=== PATIENT | female | born 1950 | race Caucasian/White ===

== ENCOUNTER 2016-10-26 12:45 | Outpatient (CLI) | payer MEDICARE, MEDICAID ==
[~2016-10-26 12:45] MED LIST: CIPR500T5 PO; DULO30CA2 PO; FLUC100T8 PO; LEVO150T8 PO; METF500T4 PO; SULF1TAB48 PO
== END 2016-10-26 23:59 | disposition home health service (06) ==
LOC: WOU 12:45
PROVIDERS: ATTEND Podiatrist Foot & Ankle Surgery
DX: E11.621 Type 2 diabetes mellitus with foot ulcer (principal); L97.513 Non-pressure chronic ulcer of other part of right foot with necrosis of muscle; L97.523 Non-pressure chronic ulcer of other part of left foot with necrosis of muscle; E11.42 Type 2 diabetes mellitus with diabetic polyneuropathy; M20.11 Hallux valgus (acquired), right foot; M20.12 Hallux valgus (acquired), left foot; Z79.84 Long term (current) use of oral hypoglycemic drugs; Z89.421 Acquired absence of other right toe(s); E03.9 Hypothyroidism, unspecified; L03.115 Cellulitis of right lower limb; L03.116 Cellulitis of left lower limb
CPT/HCPCS: 11043; 87070; 87075; A6402 ×2; 87186-TC

== ENCOUNTER 2016-10-30 14:03 | Outpatient (CLI) | payer MEDICARE, MEDICAID | END 2016-10-30 23:59 | disposition home health service (06) | LOC: WOU 14:03 | PROVIDERS: ATTEND Podiatrist Foot & Ankle Surgery | DX: E11.621 Type 2 diabetes mellitus with foot ulcer (principal); L97.523 Non-pressure chronic ulcer of other part of left foot with necrosis of muscle; L97.413 Non-pressure chronic ulcer of right heel and midfoot with necrosis of muscle; E11.42 Type 2 diabetes mellitus with diabetic polyneuropathy; L03.116 Cellulitis of left lower limb; L03.115 Cellulitis of right lower limb; B95.2 Enterococcus as the cause of diseases classified elsewhere; M20.11 Hallux valgus (acquired), right foot; M20.12 Hallux valgus (acquired), left foot | CPT/HCPCS: 11042; 11043; A6402 ==

== ENCOUNTER 2016-11-02 13:30 | Outpatient (CLI) | payer MEDICARE, MEDICAID | END 2016-11-02 23:59 | disposition home health service (06) | LOC: WOU 13:30 | PROVIDERS: ATTEND Podiatrist Foot & Ankle Surgery | DX: E11.621 Type 2 diabetes mellitus with foot ulcer (principal); I96 Gangrene, not elsewhere classified; L97.529 Non-pressure chronic ulcer of other part of left foot with unspecified severity; L97.523 Non-pressure chronic ulcer of other part of left foot with necrosis of muscle; L97.411 Non-pressure chronic ulcer of right heel and midfoot limited to breakdown of skin; M20.11 Hallux valgus (acquired), right foot; M20.41 Other hammer toe(s) (acquired), right foot; E11.42 Type 2 diabetes mellitus with diabetic polyneuropathy; E03.9 Hypothyroidism, unspecified; Z79.84 Long term (current) use of oral hypoglycemic drugs; Z79.899 Other long term (current) drug therapy | CPT/HCPCS: 11042; 11043; A6402 ==

== ENCOUNTER 2016-11-09 13:37 | Outpatient (CLI) | payer MEDICARE, MEDICAID | END 2016-11-09 23:59 | disposition home or self-care (01) | LOC: WOU 13:37 | PROVIDERS: ATTEND Podiatrist Foot & Ankle Surgery | DX: E11.621 Type 2 diabetes mellitus with foot ulcer (principal); L97.413 Non-pressure chronic ulcer of right heel and midfoot with necrosis of muscle; E11.42 Type 2 diabetes mellitus with diabetic polyneuropathy; E03.9 Hypothyroidism, unspecified; B35.1 Tinea unguium; M20.11 Hallux valgus (acquired), right foot; M20.12 Hallux valgus (acquired), left foot; L97.523 Non-pressure chronic ulcer of other part of left foot with necrosis of muscle; L97.521 Non-pressure chronic ulcer of other part of left foot limited to breakdown of skin; Z89.421 Acquired absence of other right toe(s) | CPT/HCPCS: 11043; A6402 ==

== ENCOUNTER 2016-11-13 11:03 | Outpatient (CLI) | payer MEDICARE, MEDICAID | END 2016-11-13 23:59 | disposition home or self-care (01) | LOC: WOU 11:03 | PROVIDERS: ATTEND Podiatrist Foot & Ankle Surgery | DX: E11.621 Type 2 diabetes mellitus with foot ulcer (principal); L97.523 Non-pressure chronic ulcer of other part of left foot with necrosis of muscle; E11.42 Type 2 diabetes mellitus with diabetic polyneuropathy; L97.513 Non-pressure chronic ulcer of other part of right foot with necrosis of muscle; M20.11 Hallux valgus (acquired), right foot; M20.12 Hallux valgus (acquired), left foot; B35.1 Tinea unguium; E03.9 Hypothyroidism, unspecified; Z79.84 Long term (current) use of oral hypoglycemic drugs | CPT/HCPCS: 11043; A6402 ==

== ENCOUNTER 2016-11-16 11:54 | Outpatient (CLI) | payer MEDICARE, MEDICAID | END 2016-11-16 23:59 | disposition home or self-care (01) | LOC: WOU 11:54 | PROVIDERS: ATTEND Podiatrist Foot & Ankle Surgery | DX: E11.621 Type 2 diabetes mellitus with foot ulcer (principal); L97.523 Non-pressure chronic ulcer of other part of left foot with necrosis of muscle; L97.513 Non-pressure chronic ulcer of other part of right foot with necrosis of muscle; Z89.421 Acquired absence of other right toe(s); E03.9 Hypothyroidism, unspecified; E11.42 Type 2 diabetes mellitus with diabetic polyneuropathy; M20.12 Hallux valgus (acquired), left foot; M20.11 Hallux valgus (acquired), right foot | CPT/HCPCS: 11043; A6402 ==

== ENCOUNTER 2016-11-21 13:15 | Outpatient (CLI) | payer MEDICARE | END 2016-11-21 23:59 | disposition home or self-care (01) | LOC: WOU 13:15 | PROVIDERS: ATTEND Podiatrist Foot & Ankle Surgery | DX: E11.621 Type 2 diabetes mellitus with foot ulcer (principal); L97.523 Non-pressure chronic ulcer of other part of left foot with necrosis of muscle; L97.413 Non-pressure chronic ulcer of right heel and midfoot with necrosis of muscle; E11.42 Type 2 diabetes mellitus with diabetic polyneuropathy; M20.11 Hallux valgus (acquired), right foot; E03.9 Hypothyroidism, unspecified; M20.12 Hallux valgus (acquired), left foot | CPT/HCPCS: 11043; A6402 ==

== ENCOUNTER 2016-11-23 13:14 | Outpatient (CLI) | payer MEDICARE | END 2016-11-23 23:59 | disposition home or self-care (01) | LOC: WOU 13:14 | PROVIDERS: ATTEND Podiatrist Foot & Ankle Surgery | DX: E11.621 Type 2 diabetes mellitus with foot ulcer (principal); L97.513 Non-pressure chronic ulcer of other part of right foot with necrosis of muscle; L97.523 Non-pressure chronic ulcer of other part of left foot with necrosis of muscle; E11.42 Type 2 diabetes mellitus with diabetic polyneuropathy; M20.11 Hallux valgus (acquired), right foot; E11.65 Type 2 diabetes mellitus with hyperglycemia; R11.0 Nausea; E03.9 Hypothyroidism, unspecified; M20.42 Other hammer toe(s) (acquired), left foot; M20.41 Other hammer toe(s) (acquired), right foot; Z79.84 Long term (current) use of oral hypoglycemic drugs | CPT/HCPCS: 11043; 82962-TC; A6402 ==

== ENCOUNTER 2016-11-23 14:28 | Emergency (ER) | payer MEDICARE ==
[~2016-11-23] VITALS: Ht 160 cm; Wt 86.2 kg
[2016-11-23] MEDS ORDERED: IV NS 0.9% 1,000 ML ONE (14:58)
[2016-11-23] MEDS ORDERED: IV NS 0.9% 1,000 ML BAG IV ONE (15:00)
[2016-11-23 15:18] LABS: BASOPHILS # (AUTO) 0.1 /CMM (0.0-0.2); BASOPHILS % (AUTO) 1.3 % (0.0-2.0); DIFF TOTAL % 100 %; EOSINOPHILS # (AUTO) 0.2 /CMM (0.0-0.7); EOSINOPHILS % (AUTO) 3.1 % (0.0-6.0); HEMATOCRIT 45 % (33-45); HEMOGLOBIN 14.8 g/dL (11.5-14.8); LYMPHOCYTES # (AUTO) 2.2 /CMM (0.8-4.8); LYMPHOCYTES % (AUTO) 36.2 % (20.0-44.0); MEAN CORPUSCULAR HEMOGLOBIN 30 PG (26.0-33.0); MEAN CORPUSCULAR HGB CONC 33 g/dl (31.0-36.0); MEAN CORPUSCULAR VOLUME 92 fL (82-100); MONOCYTES # (AUTO) 0.3 /CMM (0.1-1.30); MONOCYTES % (AUTO) 5.8 % (2.0-12.0); NEUTROPHILS # (AUTO) 3.2 /CMM (1.8-8.9); NEUTROPHILS % (AUTO) 53.6 % (43.0-81.0); PLATELET COUNT (AUTO) 324 /CMM (150-450); RED BLOOD CELL COUNT(AUTO) 4.92 MIL/uL (4.0-5.2)
[2016-11-23 15:42] LABS: CALCIUM, SERUM 8.9 mg/dL (8.5-10.1); CREATININE 1.2 mg/dL (0.6-1.3); POTASSIUM 4.2 mmol/L (3.5-5.1)
[2016-11-23 16:24] VITALS: BP 145/88
== END 2016-11-23 16:24 | disposition home or self-care (01) ==
LOC: ER 14:33
DX: R73.9 Hyperglycemia, unspecified (principal); R42 Dizziness and giddiness; E11.9 Type 2 diabetes mellitus without complications; E03.9 Hypothyroidism, unspecified; Z91.19 Patient's noncompliance with other medical treatment and regimen
CPT/HCPCS: 36415; 80048-TC; 82962-TC; 85025-TC; A4606; J7030; Z7610

== ENCOUNTER 2016-11-27 14:19 | Outpatient (CLI) | payer MEDICARE | END 2016-11-27 23:59 | disposition home or self-care (01) | LOC: WOU 14:19 | PROVIDERS: ATTEND Podiatrist Foot & Ankle Surgery | DX: E11.621 Type 2 diabetes mellitus with foot ulcer (principal); L97.513 Non-pressure chronic ulcer of other part of right foot with necrosis of muscle; L97.523 Non-pressure chronic ulcer of other part of left foot with necrosis of muscle; E11.42 Type 2 diabetes mellitus with diabetic polyneuropathy; M20.11 Hallux valgus (acquired), right foot; E03.9 Hypothyroidism, unspecified; R26.9 Unspecified abnormalities of gait and mobility | CPT/HCPCS: 11043; A6402 ==

== ENCOUNTER 2016-11-30 13:45 | Outpatient (CLI) | payer MEDICARE | END 2016-11-30 23:59 | disposition home or self-care (01) | LOC: WOU 13:45 | PROVIDERS: ATTEND Podiatrist Foot & Ankle Surgery | DX: E11.621 Type 2 diabetes mellitus with foot ulcer (principal); L97.513 Non-pressure chronic ulcer of other part of right foot with necrosis of muscle; L97.523 Non-pressure chronic ulcer of other part of left foot with necrosis of muscle; E11.42 Type 2 diabetes mellitus with diabetic polyneuropathy; B35.1 Tinea unguium; M20.11 Hallux valgus (acquired), right foot; M20.12 Hallux valgus (acquired), left foot; E03.9 Hypothyroidism, unspecified; Z79.84 Long term (current) use of oral hypoglycemic drugs | CPT/HCPCS: 11043; A6402 ==

== ENCOUNTER 2016-12-04 14:16 | Outpatient (CLI) | payer MEDICARE | END 2016-12-04 23:59 | disposition home or self-care (01) | LOC: WOU 14:16 | PROVIDERS: ATTEND Podiatrist Foot & Ankle Surgery | DX: E11.621 Type 2 diabetes mellitus with foot ulcer (principal); L97.523 Non-pressure chronic ulcer of other part of left foot with necrosis of muscle; E11.42 Type 2 diabetes mellitus with diabetic polyneuropathy; L97.513 Non-pressure chronic ulcer of other part of right foot with necrosis of muscle; M20.11 Hallux valgus (acquired), right foot; M20.21 Hallux rigidus, right foot; E03.9 Hypothyroidism, unspecified; M20.42 Other hammer toe(s) (acquired), left foot; M20.41 Other hammer toe(s) (acquired), right foot; Z89.421 Acquired absence of other right toe(s); R60.0 Localized edema; L03.115 Cellulitis of right lower limb; L03.116 Cellulitis of left lower limb; Z79.84 Long term (current) use of oral hypoglycemic drugs; Z79.899 Other long term (current) drug therapy | CPT/HCPCS: 11043; A6402 ==

== ENCOUNTER 2016-12-07 13:46 | Outpatient (CLI) | payer MEDICARE ==
[2016-12-07 14:31] LABS: ALBUMIN 3.5 g/dL (3.4-5.0); CALCIUM, SERUM 8.7 mg/dL (8.5-10.1); CREATININE 1.2 mg/dL (0.6-1.3); POTASSIUM 5.3 mmol/L (3.5-5.1)
== END 2016-12-07 23:59 | disposition home or self-care (01) ==
LOC: WOU 13:46
PROVIDERS: ATTEND Podiatrist Foot & Ankle Surgery
DX: E11.621 Type 2 diabetes mellitus with foot ulcer (principal); L97.513 Non-pressure chronic ulcer of other part of right foot with necrosis of muscle; L97.523 Non-pressure chronic ulcer of other part of left foot with necrosis of muscle; E11.42 Type 2 diabetes mellitus with diabetic polyneuropathy; Z89.422 Acquired absence of other left toe(s); E03.9 Hypothyroidism, unspecified; M20.11 Hallux valgus (acquired), right foot; E11.65 Type 2 diabetes mellitus with hyperglycemia; Z79.84 Long term (current) use of oral hypoglycemic drugs; Z79.899 Other long term (current) drug therapy
CPT/HCPCS: 11043; 36415; 80048; 82040; 83036; 84134; A6402

== ENCOUNTER 2016-12-11 14:15 | Outpatient (CLI) | payer MEDICARE | END 2016-12-11 23:59 | disposition home or self-care (01) | LOC: WOU 14:15 | PROVIDERS: ATTEND Podiatrist Foot & Ankle Surgery | DX: E11.621 Type 2 diabetes mellitus with foot ulcer (principal); L97.513 Non-pressure chronic ulcer of other part of right foot with necrosis of muscle; L97.523 Non-pressure chronic ulcer of other part of left foot with necrosis of muscle; E11.42 Type 2 diabetes mellitus with diabetic polyneuropathy; M20.12 Hallux valgus (acquired), left foot; M20.11 Hallux valgus (acquired), right foot; B35.1 Tinea unguium; E11.65 Type 2 diabetes mellitus with hyperglycemia; Z79.84 Long term (current) use of oral hypoglycemic drugs; E03.9 Hypothyroidism, unspecified; Z79.899 Other long term (current) drug therapy | CPT/HCPCS: 11042; 11043; A6402 ==

== ENCOUNTER 2016-12-14 13:48 | Outpatient (CLI) | payer MEDICARE | END 2016-12-14 23:59 | disposition home or self-care (01) | LOC: WOU 13:48 | PROVIDERS: ATTEND Podiatrist Foot & Ankle Surgery | DX: E11.621 Type 2 diabetes mellitus with foot ulcer (principal); L97.513 Non-pressure chronic ulcer of other part of right foot with necrosis of muscle; L97.523 Non-pressure chronic ulcer of other part of left foot with necrosis of muscle; M20.11 Hallux valgus (acquired), right foot; M20.12 Hallux valgus (acquired), left foot; E11.42 Type 2 diabetes mellitus with diabetic polyneuropathy; E11.65 Type 2 diabetes mellitus with hyperglycemia; E03.9 Hypothyroidism, unspecified; B35.1 Tinea unguium; Z79.84 Long term (current) use of oral hypoglycemic drugs; Z79.899 Other long term (current) drug therapy | CPT/HCPCS: 11043; 82962; A6402 ==

== ENCOUNTER 2016-12-18 14:24 | Outpatient (CLI) | payer MEDICARE | END 2016-12-18 23:59 | disposition home or self-care (01) | LOC: WOU 14:24 | PROVIDERS: ATTEND Podiatrist Foot & Ankle Surgery | DX: E11.65 Type 2 diabetes mellitus with hyperglycemia (principal); E11.621 Type 2 diabetes mellitus with foot ulcer; L97.523 Non-pressure chronic ulcer of other part of left foot with necrosis of muscle; L97.413 Non-pressure chronic ulcer of right heel and midfoot with necrosis of muscle; E11.42 Type 2 diabetes mellitus with diabetic polyneuropathy; M20.61 Acquired deformities of toe(s), unspecified, right foot; M20.42 Other hammer toe(s) (acquired), left foot; M20.41 Other hammer toe(s) (acquired), right foot; Z79.84 Long term (current) use of oral hypoglycemic drugs | CPT/HCPCS: 11043; A6402 ==

== ENCOUNTER 2016-12-21 13:54 | Outpatient (CLI) | payer MEDICARE | END 2016-12-21 23:59 | disposition home or self-care (01) | LOC: WOU 13:54 | PROVIDERS: ATTEND Podiatrist Foot & Ankle Surgery | DX: E11.621 Type 2 diabetes mellitus with foot ulcer (principal); L97.513 Non-pressure chronic ulcer of other part of right foot with necrosis of muscle; L97.523 Non-pressure chronic ulcer of other part of left foot with necrosis of muscle; E11.42 Type 2 diabetes mellitus with diabetic polyneuropathy; M20.11 Hallux valgus (acquired), right foot; M20.12 Hallux valgus (acquired), left foot; E03.9 Hypothyroidism, unspecified; E11.65 Type 2 diabetes mellitus with hyperglycemia; Z79.84 Long term (current) use of oral hypoglycemic drugs | CPT/HCPCS: 11043; A6402 ==

== ENCOUNTER 2016-12-25 14:28 | Outpatient (CLI) | payer MEDICARE | END 2016-12-25 23:59 | disposition home or self-care (01) | LOC: WOU 14:28 | PROVIDERS: ATTEND Podiatrist Foot & Ankle Surgery | DX: E11.621 Type 2 diabetes mellitus with foot ulcer (principal); L97.513 Non-pressure chronic ulcer of other part of right foot with necrosis of muscle; L97.523 Non-pressure chronic ulcer of other part of left foot with necrosis of muscle; E11.42 Type 2 diabetes mellitus with diabetic polyneuropathy; E11.65 Type 2 diabetes mellitus with hyperglycemia; M20.11 Hallux valgus (acquired), right foot; L03.115 Cellulitis of right lower limb | CPT/HCPCS: 11042; 11043; 82962; A6402 ==

== ENCOUNTER 2016-12-28 13:39 | Outpatient (CLI) | payer MEDICARE | END 2016-12-28 23:59 | disposition home or self-care (01) | LOC: WOU 13:39 | PROVIDERS: ATTEND Podiatrist Foot & Ankle Surgery | DX: E11.621 Type 2 diabetes mellitus with foot ulcer (principal); L97.423 Non-pressure chronic ulcer of left heel and midfoot with necrosis of muscle; L97.513 Non-pressure chronic ulcer of other part of right foot with necrosis of muscle; E11.42 Type 2 diabetes mellitus with diabetic polyneuropathy; E03.9 Hypothyroidism, unspecified; Z89.421 Acquired absence of other right toe(s); E11.65 Type 2 diabetes mellitus with hyperglycemia; M20.40 Other hammer toe(s) (acquired), unspecified foot; M20.12 Hallux valgus (acquired), left foot; Z79.84 Long term (current) use of oral hypoglycemic drugs | CPT/HCPCS: 11043; A6402 ==

== ENCOUNTER 2017-01-01 14:07 | Outpatient (CLI) | payer MEDICARE | END 2017-01-01 23:59 | disposition home or self-care (01) | LOC: WOU 14:07 | PROVIDERS: ATTEND Podiatrist Foot & Ankle Surgery | DX: E11.621 Type 2 diabetes mellitus with foot ulcer (principal); L97.523 Non-pressure chronic ulcer of other part of left foot with necrosis of muscle; L97.413 Non-pressure chronic ulcer of right heel and midfoot with necrosis of muscle; E11.42 Type 2 diabetes mellitus with diabetic polyneuropathy; M20.42 Other hammer toe(s) (acquired), left foot; M20.41 Other hammer toe(s) (acquired), right foot; M20.12 Hallux valgus (acquired), left foot; M20.11 Hallux valgus (acquired), right foot; Z89.422 Acquired absence of other left toe(s); E03.9 Hypothyroidism, unspecified; E11.65 Type 2 diabetes mellitus with hyperglycemia; Z79.84 Long term (current) use of oral hypoglycemic drugs; Z79.899 Other long term (current) drug therapy | CPT/HCPCS: 11043; 82962; A6402 ==

== ENCOUNTER 2017-01-04 13:20 | Outpatient (CLI) | payer MEDICARE | END 2017-01-04 23:59 | disposition home or self-care (01) | LOC: WOU 13:20 | PROVIDERS: ATTEND Podiatrist Foot & Ankle Surgery | DX: E11.621 Type 2 diabetes mellitus with foot ulcer (principal); E11.65 Type 2 diabetes mellitus with hyperglycemia; E11.42 Type 2 diabetes mellitus with diabetic polyneuropathy; L97.413 Non-pressure chronic ulcer of right heel and midfoot with necrosis of muscle; L97.523 Non-pressure chronic ulcer of other part of left foot with necrosis of muscle; E03.9 Hypothyroidism, unspecified; Z89.421 Acquired absence of other right toe(s); M20.40 Other hammer toe(s) (acquired), unspecified foot; Z79.84 Long term (current) use of oral hypoglycemic drugs | CPT/HCPCS: 11043; A6402 ==

== ENCOUNTER 2017-01-08 14:07 | Outpatient (CLI) | payer MEDICARE | END 2017-01-08 23:59 | disposition home or self-care (01) | LOC: WOU 14:07 | PROVIDERS: ATTEND Podiatrist Foot & Ankle Surgery | DX: E11.621 Type 2 diabetes mellitus with foot ulcer (principal); L97.523 Non-pressure chronic ulcer of other part of left foot with necrosis of muscle; L97.413 Non-pressure chronic ulcer of right heel and midfoot with necrosis of muscle; E11.42 Type 2 diabetes mellitus with diabetic polyneuropathy; M20.12 Hallux valgus (acquired), left foot; M20.11 Hallux valgus (acquired), right foot; E11.65 Type 2 diabetes mellitus with hyperglycemia; E03.9 Hypothyroidism, unspecified; Z89.422 Acquired absence of other left toe(s); Z79.84 Long term (current) use of oral hypoglycemic drugs; Z79.899 Other long term (current) drug therapy | CPT/HCPCS: 11043; A6402 ==

== ENCOUNTER 2017-01-11 14:25 | Outpatient (CLI) | payer MEDICARE | END 2017-01-11 23:59 | disposition home or self-care (01) | LOC: WOU 14:25 | PROVIDERS: ATTEND Podiatrist Foot & Ankle Surgery | DX: E11.621 Type 2 diabetes mellitus with foot ulcer (principal); L97.521 Non-pressure chronic ulcer of other part of left foot limited to breakdown of skin; L97.411 Non-pressure chronic ulcer of right heel and midfoot limited to breakdown of skin; M20.42 Other hammer toe(s) (acquired), left foot; M20.41 Other hammer toe(s) (acquired), right foot; M20.12 Hallux valgus (acquired), left foot; M20.11 Hallux valgus (acquired), right foot; E11.42 Type 2 diabetes mellitus with diabetic polyneuropathy; Z89.429 Acquired absence of other toe(s), unspecified side; T38.3X6A Underdosing of insulin and oral hypoglycemic [antidiabetic] drugs, initial encounter; Z91.120 Patient's intentional underdosing of medication regimen due to financial hardship; Y92.89 Other specified places as the place of occurrence of the external cause | CPT/HCPCS: 11042; A6209; A6402 ×2 ==

== ENCOUNTER 2017-01-15 14:13 | Outpatient (CLI) | payer MEDICARE | END 2017-01-15 23:59 | disposition home or self-care (01) | LOC: WOU 14:13 | PROVIDERS: ATTEND Podiatrist Foot & Ankle Surgery | DX: E11.621 Type 2 diabetes mellitus with foot ulcer (principal); L97.521 Non-pressure chronic ulcer of other part of left foot limited to breakdown of skin; L97.411 Non-pressure chronic ulcer of right heel and midfoot limited to breakdown of skin; M20.42 Other hammer toe(s) (acquired), left foot; M20.41 Other hammer toe(s) (acquired), right foot; M20.12 Hallux valgus (acquired), left foot; M20.11 Hallux valgus (acquired), right foot; E11.42 Type 2 diabetes mellitus with diabetic polyneuropathy; R60.0 Localized edema; E11.65 Type 2 diabetes mellitus with hyperglycemia; T38.3X6D Underdosing of insulin and oral hypoglycemic [antidiabetic] drugs, subsequent encounter; Z91.120 Patient's intentional underdosing of medication regimen due to financial hardship | CPT/HCPCS: 15275; A6402 ==

== ENCOUNTER 2017-01-18 13:51 | Outpatient (CLI) | payer MEDICARE | END 2017-01-18 23:59 | disposition home or self-care (01) | LOC: WOU 13:51 | PROVIDERS: ATTEND Podiatrist Foot & Ankle Surgery | DX: E11.621 Type 2 diabetes mellitus with foot ulcer (principal); L97.521 Non-pressure chronic ulcer of other part of left foot limited to breakdown of skin; L97.411 Non-pressure chronic ulcer of right heel and midfoot limited to breakdown of skin; E11.42 Type 2 diabetes mellitus with diabetic polyneuropathy; R60.0 Localized edema; E11.65 Type 2 diabetes mellitus with hyperglycemia; Z89.429 Acquired absence of other toe(s), unspecified side; M20.42 Other hammer toe(s) (acquired), left foot; M20.41 Other hammer toe(s) (acquired), right foot; M20.12 Hallux valgus (acquired), left foot; M20.11 Hallux valgus (acquired), right foot | CPT/HCPCS: A6402; G0463 ==

== ENCOUNTER 2017-01-22 14:23 | Outpatient (CLI) | payer MEDICARE | END 2017-01-22 23:59 | disposition home or self-care (01) | LOC: WOU 14:23 | PROVIDERS: ATTEND Podiatrist Foot & Ankle Surgery | DX: E11.65 Type 2 diabetes mellitus with hyperglycemia (principal); E11.621 Type 2 diabetes mellitus with foot ulcer; L97.411 Non-pressure chronic ulcer of right heel and midfoot limited to breakdown of skin; L97.521 Non-pressure chronic ulcer of other part of left foot limited to breakdown of skin; M20.12 Hallux valgus (acquired), left foot; M20.11 Hallux valgus (acquired), right foot; M20.40 Other hammer toe(s) (acquired), unspecified foot; R60.0 Localized edema; Z79.84 Long term (current) use of oral hypoglycemic drugs | CPT/HCPCS: 11042; A6402 ==

== ENCOUNTER 2017-01-29 13:40 | Outpatient (CLI) | payer MEDICARE | END 2017-01-29 23:59 | disposition home or self-care (01) | LOC: WOU 13:40 | PROVIDERS: ATTEND Podiatrist Foot & Ankle Surgery | DX: E11.621 Type 2 diabetes mellitus with foot ulcer (principal); L97.411 Non-pressure chronic ulcer of right heel and midfoot limited to breakdown of skin; L97.521 Non-pressure chronic ulcer of other part of left foot limited to breakdown of skin; M20.12 Hallux valgus (acquired), left foot; M20.11 Hallux valgus (acquired), right foot; M20.42 Other hammer toe(s) (acquired), left foot; M20.41 Other hammer toe(s) (acquired), right foot; L03.116 Cellulitis of left lower limb; E11.42 Type 2 diabetes mellitus with diabetic polyneuropathy; E11.65 Type 2 diabetes mellitus with hyperglycemia; Z79.84 Long term (current) use of oral hypoglycemic drugs | CPT/HCPCS: 11042; A6402 ==

== ENCOUNTER 2017-02-01 13:40 | Outpatient (CLI) | payer MEDICARE | END 2017-02-01 23:59 | disposition home or self-care (01) | LOC: WOU 13:40 | PROVIDERS: ATTEND Podiatrist Foot & Ankle Surgery | DX: E11.621 Type 2 diabetes mellitus with foot ulcer (principal); L97.421 Non-pressure chronic ulcer of left heel and midfoot limited to breakdown of skin; L97.411 Non-pressure chronic ulcer of right heel and midfoot limited to breakdown of skin; E11.65 Type 2 diabetes mellitus with hyperglycemia; E11.42 Type 2 diabetes mellitus with diabetic polyneuropathy; Z79.84 Long term (current) use of oral hypoglycemic drugs; Z89.421 Acquired absence of other right toe(s); L97.521 Non-pressure chronic ulcer of other part of left foot limited to breakdown of skin | CPT/HCPCS: 11042; A6402; G0463 ==

== ENCOUNTER 2017-02-05 13:56 | Outpatient (CLI) | payer MEDICARE | END 2017-02-05 23:59 | disposition home or self-care (01) | LOC: WOU 13:56 | PROVIDERS: ATTEND Podiatrist | DX: E11.621 Type 2 diabetes mellitus with foot ulcer (principal); L97.513 Non-pressure chronic ulcer of other part of right foot with necrosis of muscle; L97.523 Non-pressure chronic ulcer of other part of left foot with necrosis of muscle; E11.42 Type 2 diabetes mellitus with diabetic polyneuropathy; M20.11 Hallux valgus (acquired), right foot; M20.12 Hallux valgus (acquired), left foot; L03.115 Cellulitis of right lower limb; L03.116 Cellulitis of left lower limb; Z79.84 Long term (current) use of oral hypoglycemic drugs | CPT/HCPCS: 11042; 11043; A6402 ==

== ENCOUNTER 2017-02-12 14:11 | Outpatient (CLI) | payer MEDICARE | END 2017-02-12 23:59 | disposition home or self-care (01) | LOC: WOU 14:11 | PROVIDERS: ATTEND Podiatrist Foot & Ankle Surgery | DX: E11.621 Type 2 diabetes mellitus with foot ulcer (principal); L97.511 Non-pressure chronic ulcer of other part of right foot limited to breakdown of skin; L97.521 Non-pressure chronic ulcer of other part of left foot limited to breakdown of skin; E66.9 Obesity, unspecified; Z68.33 Body mass index [BMI] 33.0-33.9, adult; E11.42 Type 2 diabetes mellitus with diabetic polyneuropathy; R26.9 Unspecified abnormalities of gait and mobility; Z89.422 Acquired absence of other left toe(s); E03.9 Hypothyroidism, unspecified; M20.11 Hallux valgus (acquired), right foot; M20.12 Hallux valgus (acquired), left foot; M20.42 Other hammer toe(s) (acquired), left foot; M20.41 Other hammer toe(s) (acquired), right foot; E11.65 Type 2 diabetes mellitus with hyperglycemia | CPT/HCPCS: 11042; A6402 ==

== ENCOUNTER 2017-02-19 13:35 | Outpatient (CLI) | payer MEDICARE | END 2017-02-19 23:59 | disposition home or self-care (01) | LOC: WOU 13:35 | PROVIDERS: ATTEND Podiatrist Foot & Ankle Surgery | DX: E11.621 Type 2 diabetes mellitus with foot ulcer (principal); L97.411 Non-pressure chronic ulcer of right heel and midfoot limited to breakdown of skin; E11.65 Type 2 diabetes mellitus with hyperglycemia; E11.42 Type 2 diabetes mellitus with diabetic polyneuropathy; L97.521 Non-pressure chronic ulcer of other part of left foot limited to breakdown of skin; Z89.421 Acquired absence of other right toe(s); M20.10 Hallux valgus (acquired), unspecified foot; M20.40 Other hammer toe(s) (acquired), unspecified foot; R60.0 Localized edema | CPT/HCPCS: 11042; A6402 ==

== ENCOUNTER 2017-02-26 14:10 | Outpatient (CLI) | payer MEDICARE | END 2017-02-26 23:59 | disposition home or self-care (01) | LOC: WOU 14:10 | PROVIDERS: ATTEND Podiatrist Foot & Ankle Surgery | DX: E11.621 Type 2 diabetes mellitus with foot ulcer (principal); L97.411 Non-pressure chronic ulcer of right heel and midfoot limited to breakdown of skin; L97.521 Non-pressure chronic ulcer of other part of left foot limited to breakdown of skin; E11.42 Type 2 diabetes mellitus with diabetic polyneuropathy; Z89.421 Acquired absence of other right toe(s); M20.11 Hallux valgus (acquired), right foot; M20.41 Other hammer toe(s) (acquired), right foot; E11.65 Type 2 diabetes mellitus with hyperglycemia; E03.9 Hypothyroidism, unspecified; Z79.84 Long term (current) use of oral hypoglycemic drugs; Z79.899 Other long term (current) drug therapy | CPT/HCPCS: 11042; A6402 ==

== ENCOUNTER 2017-03-05 14:20 | Outpatient (CLI) | payer MEDICARE | END 2017-03-05 23:59 | disposition home or self-care (01) | LOC: WOU 14:20 | PROVIDERS: ATTEND Podiatrist Foot & Ankle Surgery | DX: E11.621 Type 2 diabetes mellitus with foot ulcer (principal); L97.513 Non-pressure chronic ulcer of other part of right foot with necrosis of muscle; L97.523 Non-pressure chronic ulcer of other part of left foot with necrosis of muscle; L03.115 Cellulitis of right lower limb; L03.116 Cellulitis of left lower limb; M20.11 Hallux valgus (acquired), right foot; M20.12 Hallux valgus (acquired), left foot; E11.42 Type 2 diabetes mellitus with diabetic polyneuropathy; R60.0 Localized edema; Z89.422 Acquired absence of other left toe(s); E11.65 Type 2 diabetes mellitus with hyperglycemia; Z79.84 Long term (current) use of oral hypoglycemic drugs | CPT/HCPCS: 11042; A6402 ==

== ENCOUNTER 2017-03-15 10:46 | Outpatient (CLI) | payer MEDICARE | END 2017-03-15 23:59 | disposition home or self-care (01) | LOC: WOU 10:46 | PROVIDERS: ATTEND Podiatrist Foot & Ankle Surgery | DX: E11.621 Type 2 diabetes mellitus with foot ulcer (principal); L97.521 Non-pressure chronic ulcer of other part of left foot limited to breakdown of skin; L97.411 Non-pressure chronic ulcer of right heel and midfoot limited to breakdown of skin; E11.42 Type 2 diabetes mellitus with diabetic polyneuropathy; R60.0 Localized edema; Z89.421 Acquired absence of other right toe(s); M20.11 Hallux valgus (acquired), right foot; M20.41 Other hammer toe(s) (acquired), right foot; E11.65 Type 2 diabetes mellitus with hyperglycemia; E03.9 Hypothyroidism, unspecified; Z79.84 Long term (current) use of oral hypoglycemic drugs | CPT/HCPCS: 11042; A6402 ==

== ENCOUNTER 2017-03-22 13:35 | Outpatient (CLI) | payer MEDICARE | END 2017-03-22 23:59 | disposition home or self-care (01) | LOC: WOU 13:35 | PROVIDERS: ATTEND Podiatrist Foot & Ankle Surgery | DX: E11.621 Type 2 diabetes mellitus with foot ulcer (principal); L97.411 Non-pressure chronic ulcer of right heel and midfoot limited to breakdown of skin; L97.521 Non-pressure chronic ulcer of other part of left foot limited to breakdown of skin; E11.65 Type 2 diabetes mellitus with hyperglycemia; E11.42 Type 2 diabetes mellitus with diabetic polyneuropathy; M20.41 Other hammer toe(s) (acquired), right foot; M20.11 Hallux valgus (acquired), right foot; R60.0 Localized edema; Z79.84 Long term (current) use of oral hypoglycemic drugs | CPT/HCPCS: 11042; A6402 ==

== ENCOUNTER 2017-04-02 14:00 | Outpatient (CLI) | payer MEDICARE | END 2017-04-02 23:59 | disposition home or self-care (01) | LOC: WOU 14:00 | PROVIDERS: ATTEND Podiatrist Foot & Ankle Surgery | DX: E11.621 Type 2 diabetes mellitus with foot ulcer (principal); L97.411 Non-pressure chronic ulcer of right heel and midfoot limited to breakdown of skin; L97.521 Non-pressure chronic ulcer of other part of left foot limited to breakdown of skin; E11.42 Type 2 diabetes mellitus with diabetic polyneuropathy; M19.039 Primary osteoarthritis, unspecified wrist; M20.41 Other hammer toe(s) (acquired), right foot; L60.0 Ingrowing nail; Z89.421 Acquired absence of other right toe(s); E11.65 Type 2 diabetes mellitus with hyperglycemia; Z79.84 Long term (current) use of oral hypoglycemic drugs | CPT/HCPCS: 11042; A6402 ==

== ENCOUNTER 2017-04-16 13:40 | Outpatient (CLI) | payer MEDICARE | END 2017-04-16 23:59 | disposition home or self-care (01) | LOC: WOU 13:40 | PROVIDERS: ATTEND Podiatrist Foot & Ankle Surgery | DX: E11.621 Type 2 diabetes mellitus with foot ulcer (principal); L97.411 Non-pressure chronic ulcer of right heel and midfoot limited to breakdown of skin; L97.521 Non-pressure chronic ulcer of other part of left foot limited to breakdown of skin; M20.11 Hallux valgus (acquired), right foot; E11.65 Type 2 diabetes mellitus with hyperglycemia; E11.42 Type 2 diabetes mellitus with diabetic polyneuropathy; R60.0 Localized edema; M20.5X9 Other deformities of toe(s) (acquired), unspecified foot; Z79.84 Long term (current) use of oral hypoglycemic drugs | CPT/HCPCS: 11042; A6402 ==

== ENCOUNTER 2017-04-26 13:03 | Outpatient (CLI) | payer MEDICARE | END 2017-04-26 23:59 | disposition home or self-care (01) | LOC: WOU 13:03 | PROVIDERS: ATTEND Podiatrist Foot & Ankle Surgery | DX: E11.621 Type 2 diabetes mellitus with foot ulcer (principal); L97.521 Non-pressure chronic ulcer of other part of left foot limited to breakdown of skin; L97.511 Non-pressure chronic ulcer of other part of right foot limited to breakdown of skin; Z89.421 Acquired absence of other right toe(s); E11.65 Type 2 diabetes mellitus with hyperglycemia; E11.42 Type 2 diabetes mellitus with diabetic polyneuropathy; M20.42 Other hammer toe(s) (acquired), left foot; M20.41 Other hammer toe(s) (acquired), right foot; M20.12 Hallux valgus (acquired), left foot; M20.11 Hallux valgus (acquired), right foot; R60.0 Localized edema; Z79.84 Long term (current) use of oral hypoglycemic drugs | CPT/HCPCS: 11042; A6402 ==

== ENCOUNTER 2017-05-03 13:32 | Outpatient (CLI) | payer MEDICARE | END 2017-05-03 23:59 | disposition home or self-care (01) | LOC: WOU 13:32 | PROVIDERS: ATTEND Podiatrist Foot & Ankle Surgery | DX: E11.621 Type 2 diabetes mellitus with foot ulcer (principal); L97.411 Non-pressure chronic ulcer of right heel and midfoot limited to breakdown of skin; L97.521 Non-pressure chronic ulcer of other part of left foot limited to breakdown of skin; M20.12 Hallux valgus (acquired), left foot; M20.11 Hallux valgus (acquired), right foot; E11.42 Type 2 diabetes mellitus with diabetic polyneuropathy; R60.0 Localized edema; E11.65 Type 2 diabetes mellitus with hyperglycemia; Z89.422 Acquired absence of other left toe(s); E03.9 Hypothyroidism, unspecified; M20.42 Other hammer toe(s) (acquired), left foot; M20.41 Other hammer toe(s) (acquired), right foot; Z79.84 Long term (current) use of oral hypoglycemic drugs; Z79.899 Other long term (current) drug therapy | CPT/HCPCS: 11042; A6402 ==

== ENCOUNTER 2017-05-17 13:38 | Outpatient (CLI) | payer MEDICARE | END 2017-05-17 23:59 | disposition home or self-care (01) | LOC: WOU 13:38 | PROVIDERS: ATTEND Podiatrist Foot & Ankle Surgery | DX: E11.621 Type 2 diabetes mellitus with foot ulcer (principal); E11.622 Type 2 diabetes mellitus with other skin ulcer; L97.521 Non-pressure chronic ulcer of other part of left foot limited to breakdown of skin; L97.411 Non-pressure chronic ulcer of right heel and midfoot limited to breakdown of skin; L97.321 Non-pressure chronic ulcer of left ankle limited to breakdown of skin; E11.42 Type 2 diabetes mellitus with diabetic polyneuropathy; R60.0 Localized edema; Z89.421 Acquired absence of other right toe(s); M20.12 Hallux valgus (acquired), left foot; M20.11 Hallux valgus (acquired), right foot; M20.42 Other hammer toe(s) (acquired), left foot; M20.41 Other hammer toe(s) (acquired), right foot; R26.9 Unspecified abnormalities of gait and mobility; E11.65 Type 2 diabetes mellitus with hyperglycemia; Z79.84 Long term (current) use of oral hypoglycemic drugs; Z79.899 Other long term (current) drug therapy | CPT/HCPCS: 11042; A6402 ==

== ENCOUNTER 2017-05-28 13:01 | Outpatient (CLI) | payer MEDICARE | END 2017-05-28 23:59 | disposition home or self-care (01) | LOC: WOU 13:01 | PROVIDERS: ATTEND Podiatrist Foot & Ankle Surgery | DX: E11.621 Type 2 diabetes mellitus with foot ulcer (principal); L97.513 Non-pressure chronic ulcer of other part of right foot with necrosis of muscle; L97.523 Non-pressure chronic ulcer of other part of left foot with necrosis of muscle; E11.42 Type 2 diabetes mellitus with diabetic polyneuropathy; E11.65 Type 2 diabetes mellitus with hyperglycemia; E03.9 Hypothyroidism, unspecified; Z89.422 Acquired absence of other left toe(s); Z79.84 Long term (current) use of oral hypoglycemic drugs; Z79.899 Other long term (current) drug therapy | CPT/HCPCS: 11042; A6402 ==

== ENCOUNTER 2017-06-07 13:36 | Outpatient (CLI) | payer MEDICARE | END 2017-06-07 23:59 | disposition home or self-care (01) | LOC: WOU 13:36 | PROVIDERS: ATTEND Podiatrist Foot & Ankle Surgery | DX: E11.621 Type 2 diabetes mellitus with foot ulcer (principal); L97.411 Non-pressure chronic ulcer of right heel and midfoot limited to breakdown of skin; L97.521 Non-pressure chronic ulcer of other part of left foot limited to breakdown of skin; M20.42 Other hammer toe(s) (acquired), left foot; M20.41 Other hammer toe(s) (acquired), right foot; I89.0 Lymphedema, not elsewhere classified; R60.0 Localized edema; E11.42 Type 2 diabetes mellitus with diabetic polyneuropathy; Z79.84 Long term (current) use of oral hypoglycemic drugs; Z79.899 Other long term (current) drug therapy | CPT/HCPCS: 11042; A6402 ==

== ENCOUNTER 2017-06-18 13:18 | Outpatient (CLI) | payer MEDICARE | END 2017-06-18 23:59 | disposition home or self-care (01) | LOC: WOU 13:18 | PROVIDERS: ATTEND Podiatrist Foot & Ankle Surgery | DX: E11.621 Type 2 diabetes mellitus with foot ulcer (principal); L97.411 Non-pressure chronic ulcer of right heel and midfoot limited to breakdown of skin; L97.521 Non-pressure chronic ulcer of other part of left foot limited to breakdown of skin; M20.42 Other hammer toe(s) (acquired), left foot; M20.41 Other hammer toe(s) (acquired), right foot; M20.12 Hallux valgus (acquired), left foot; M20.11 Hallux valgus (acquired), right foot; E11.52 Type 2 diabetes mellitus with diabetic peripheral angiopathy with gangrene; R60.0 Localized edema; Z89.421 Acquired absence of other right toe(s); Z79.84 Long term (current) use of oral hypoglycemic drugs | CPT/HCPCS: 11042; A6402 ==

== ENCOUNTER 2017-07-02 13:02 | Outpatient (CLI) | payer MEDICARE | END 2017-07-02 23:59 | disposition home or self-care (01) | DX: E11.621 Type 2 diabetes mellitus with foot ulcer (principal); E11.622 Type 2 diabetes mellitus with other skin ulcer; L97.411 Non-pressure chronic ulcer of right heel and midfoot limited to breakdown of skin; L97.511 Non-pressure chronic ulcer of other part of right foot limited to breakdown of skin; L97.811 Non-pressure chronic ulcer of other part of right lower leg limited to breakdown of skin; B35.1 Tinea unguium; M20.12 Hallux valgus (acquired), left foot; M20.11 Hallux valgus (acquired), right foot; M20.42 Other hammer toe(s) (acquired), left foot; M20.41 Other hammer toe(s) (acquired), right foot; E03.9 Hypothyroidism, unspecified; Z89.421 Acquired absence of other right toe(s); R60.0 Localized edema; E11.42 Type 2 diabetes mellitus with diabetic polyneuropathy; E11.51 Type 2 diabetes mellitus with diabetic peripheral angiopathy without gangrene; Z79.84 Long term (current) use of oral hypoglycemic drugs | CPT/HCPCS: 11042; A6402 ==

== ENCOUNTER 2017-07-10 13:20 | Outpatient (CLI) | payer MEDICARE | END 2017-07-10 23:59 | disposition home or self-care (01) | LOC: WOU 13:20 | PROVIDERS: ATTEND Specialist | DX: L03.115 Cellulitis of right lower limb (principal); L03.116 Cellulitis of left lower limb; E11.41 Type 2 diabetes mellitus with diabetic mononeuropathy; E11.620 Type 2 diabetes mellitus with diabetic dermatitis; L30.8 Other specified dermatitis; M20.12 Hallux valgus (acquired), left foot; M20.11 Hallux valgus (acquired), right foot; E03.9 Hypothyroidism, unspecified; Z79.84 Long term (current) use of oral hypoglycemic drugs; Z79.899 Other long term (current) drug therapy | CPT/HCPCS: G0463 ==

== ENCOUNTER 2017-07-12 13:12 | Outpatient (CLI) | payer MEDICARE | END 2017-07-12 23:59 | disposition home or self-care (01) | LOC: WOU 13:12 | PROVIDERS: ATTEND Podiatrist Foot & Ankle Surgery | DX: E11.621 Type 2 diabetes mellitus with foot ulcer (principal); L97.411 Non-pressure chronic ulcer of right heel and midfoot limited to breakdown of skin; L97.521 Non-pressure chronic ulcer of other part of left foot limited to breakdown of skin; E11.42 Type 2 diabetes mellitus with diabetic polyneuropathy; Z89.421 Acquired absence of other right toe(s); M20.11 Hallux valgus (acquired), right foot; M20.41 Other hammer toe(s) (acquired), right foot; Z79.84 Long term (current) use of oral hypoglycemic drugs; Z79.899 Other long term (current) drug therapy | CPT/HCPCS: 15275; A6402; Q4133 ×2 ==

== ENCOUNTER 2017-07-19 13:07 | Outpatient (CLI) | payer MEDICARE | END 2017-07-19 23:59 | disposition home or self-care (01) | LOC: WOU 13:07 | PROVIDERS: ATTEND Podiatrist Foot & Ankle Surgery | DX: E11.621 Type 2 diabetes mellitus with foot ulcer (principal); L97.411 Non-pressure chronic ulcer of right heel and midfoot limited to breakdown of skin; L97.521 Non-pressure chronic ulcer of other part of left foot limited to breakdown of skin; E11.42 Type 2 diabetes mellitus with diabetic polyneuropathy; M20.11 Hallux valgus (acquired), right foot; Z89.421 Acquired absence of other right toe(s); Z79.84 Long term (current) use of oral hypoglycemic drugs | CPT/HCPCS: 11042; A6402 ==

== ENCOUNTER 2017-08-02 13:02 | Outpatient (CLI) | payer MEDICARE | END 2017-08-02 23:59 | disposition home or self-care (01) | LOC: WOU 13:02 | PROVIDERS: ATTEND Podiatrist Foot & Ankle Surgery | DX: E11.621 Type 2 diabetes mellitus with foot ulcer (principal); L97.411 Non-pressure chronic ulcer of right heel and midfoot limited to breakdown of skin; L97.521 Non-pressure chronic ulcer of other part of left foot limited to breakdown of skin; M20.12 Hallux valgus (acquired), left foot; M20.11 Hallux valgus (acquired), right foot; E11.65 Type 2 diabetes mellitus with hyperglycemia; E11.42 Type 2 diabetes mellitus with diabetic polyneuropathy; Z89.421 Acquired absence of other right toe(s); Z79.84 Long term (current) use of oral hypoglycemic drugs | CPT/HCPCS: 11042; A6402 ==

== ENCOUNTER 2017-08-13 13:56 | Outpatient (CLI) | payer MEDICARE | END 2017-08-13 23:59 | disposition home or self-care (01) | LOC: WOU 13:56 | PROVIDERS: ATTEND Podiatrist Foot & Ankle Surgery | DX: E11.621 Type 2 diabetes mellitus with foot ulcer (principal); L97.511 Non-pressure chronic ulcer of other part of right foot limited to breakdown of skin; E11.42 Type 2 diabetes mellitus with diabetic polyneuropathy; M20.12 Hallux valgus (acquired), left foot; M20.11 Hallux valgus (acquired), right foot; L97.421 Non-pressure chronic ulcer of left heel and midfoot limited to breakdown of skin; M21.622 Bunionette of left foot; R60.0 Localized edema; Z89.421 Acquired absence of other right toe(s); Z79.84 Long term (current) use of oral hypoglycemic drugs | CPT/HCPCS: 11042; A6402 ==

== ENCOUNTER 2017-08-20 13:30 | Outpatient (CLI) | payer MEDICARE | END 2017-08-20 23:59 | disposition home or self-care (01) | LOC: WOU 13:30 | PROVIDERS: ATTEND Podiatrist Foot & Ankle Surgery | DX: E11.621 Type 2 diabetes mellitus with foot ulcer (principal); L97.411 Non-pressure chronic ulcer of right heel and midfoot limited to breakdown of skin; L97.521 Non-pressure chronic ulcer of other part of left foot limited to breakdown of skin; E11.42 Type 2 diabetes mellitus with diabetic polyneuropathy; Z89.421 Acquired absence of other right toe(s); M20.12 Hallux valgus (acquired), left foot; M20.11 Hallux valgus (acquired), right foot; R60.0 Localized edema; Z79.84 Long term (current) use of oral hypoglycemic drugs | CPT/HCPCS: 11042; A6402 ==

== ENCOUNTER 2017-08-27 14:53 | Outpatient (CLI) | payer MEDICARE | END 2017-08-27 23:59 | disposition home or self-care (01) | LOC: WOU 14:53 | PROVIDERS: ATTEND Podiatrist Foot & Ankle Surgery | DX: E11.621 Type 2 diabetes mellitus with foot ulcer (principal); E11.42 Type 2 diabetes mellitus with diabetic polyneuropathy; L97.411 Non-pressure chronic ulcer of right heel and midfoot limited to breakdown of skin; L97.521 Non-pressure chronic ulcer of other part of left foot limited to breakdown of skin; L84 Corns and callosities; M20.12 Hallux valgus (acquired), left foot; M20.11 Hallux valgus (acquired), right foot; Z79.84 Long term (current) use of oral hypoglycemic drugs | CPT/HCPCS: 11042; A6402 ==

== ENCOUNTER 2017-09-03 13:55 | Outpatient (CLI) | payer MEDICARE | END 2017-09-03 23:59 | disposition home or self-care (01) | LOC: WOU 13:55 | PROVIDERS: ATTEND Podiatrist Foot & Ankle Surgery | DX: E11.621 Type 2 diabetes mellitus with foot ulcer (principal); L97.411 Non-pressure chronic ulcer of right heel and midfoot limited to breakdown of skin; L97.521 Non-pressure chronic ulcer of other part of left foot limited to breakdown of skin; E11.42 Type 2 diabetes mellitus with diabetic polyneuropathy; R60.0 Localized edema; M20.11 Hallux valgus (acquired), right foot; Z89.439 Acquired absence of unspecified foot; M20.12 Hallux valgus (acquired), left foot; Z79.899 Other long term (current) drug therapy; Z79.84 Long term (current) use of oral hypoglycemic drugs | CPT/HCPCS: 11042; A6402 ==

== ENCOUNTER 2017-09-10 14:03 | Outpatient (CLI) | payer MEDICARE | END 2017-09-10 23:59 | disposition home or self-care (01) | LOC: WOU 14:03 | PROVIDERS: ATTEND Podiatrist Foot & Ankle Surgery | DX: E11.621 Type 2 diabetes mellitus with foot ulcer (principal); L97.522 Non-pressure chronic ulcer of other part of left foot with fat layer exposed; L97.412 Non-pressure chronic ulcer of right heel and midfoot with fat layer exposed; E11.42 Type 2 diabetes mellitus with diabetic polyneuropathy; M20.12 Hallux valgus (acquired), left foot; M20.11 Hallux valgus (acquired), right foot; M20.40 Other hammer toe(s) (acquired), unspecified foot; L90.9 Atrophic disorder of skin, unspecified; Z79.84 Long term (current) use of oral hypoglycemic drugs | CPT/HCPCS: 11042; A6402 ==

== ENCOUNTER 2017-09-20 13:45 | Outpatient (CLI) | payer MEDICARE | END 2017-09-20 23:59 | disposition home or self-care (01) | LOC: WOU 13:45 | PROVIDERS: ATTEND Podiatrist Foot & Ankle Surgery | DX: E11.621 Type 2 diabetes mellitus with foot ulcer (principal); L97.412 Non-pressure chronic ulcer of right heel and midfoot with fat layer exposed; L97.522 Non-pressure chronic ulcer of other part of left foot with fat layer exposed; E11.42 Type 2 diabetes mellitus with diabetic polyneuropathy; M20.12 Hallux valgus (acquired), left foot; M20.11 Hallux valgus (acquired), right foot; R60.0 Localized edema; L84 Corns and callosities; E11.65 Type 2 diabetes mellitus with hyperglycemia; Z79.84 Long term (current) use of oral hypoglycemic drugs; M20.5X9 Other deformities of toe(s) (acquired), unspecified foot; L60.3 Nail dystrophy | CPT/HCPCS: 11042; A6402 ==

== ENCOUNTER 2017-10-04 13:06 | Outpatient (CLI) | payer MEDICARE | END 2017-10-04 23:59 | disposition home or self-care (01) | LOC: WOU 13:06 | PROVIDERS: ATTEND Podiatrist Foot & Ankle Surgery | DX: E11.621 Type 2 diabetes mellitus with foot ulcer (principal); L97.522 Non-pressure chronic ulcer of other part of left foot with fat layer exposed; L97.512 Non-pressure chronic ulcer of other part of right foot with fat layer exposed; M20.42 Other hammer toe(s) (acquired), left foot; M20.41 Other hammer toe(s) (acquired), right foot; R60.0 Localized edema; E11.42 Type 2 diabetes mellitus with diabetic polyneuropathy; M20.11 Hallux valgus (acquired), right foot; Z79.84 Long term (current) use of oral hypoglycemic drugs | CPT/HCPCS: 11042; A6402 ==

== ENCOUNTER 2017-10-18 13:44 | Outpatient (CLI) | payer MEDICARE | END 2017-10-18 23:00 | disposition home or self-care (01) | LOC: WOU 13:44 | PROVIDERS: ATTEND Podiatrist Foot & Ankle Surgery | DX: E11.621 Type 2 diabetes mellitus with foot ulcer (principal); L97.522 Non-pressure chronic ulcer of other part of left foot with fat layer exposed; L97.412 Non-pressure chronic ulcer of right heel and midfoot with fat layer exposed; M20.12 Hallux valgus (acquired), left foot; M20.11 Hallux valgus (acquired), right foot; E11.42 Type 2 diabetes mellitus with diabetic polyneuropathy; L03.90 Cellulitis, unspecified; Z79.84 Long term (current) use of oral hypoglycemic drugs | CPT/HCPCS: 11042; A6402 ==

== ENCOUNTER 2017-10-25 13:45 | Outpatient (CLI) | payer MEDICARE | END 2017-10-25 23:59 | disposition home or self-care (01) | LOC: WOU 13:45 | PROVIDERS: ATTEND Podiatrist Foot & Ankle Surgery | DX: E11.621 Type 2 diabetes mellitus with foot ulcer (principal); E11.42 Type 2 diabetes mellitus with diabetic polyneuropathy; L97.412 Non-pressure chronic ulcer of right heel and midfoot with fat layer exposed; L97.522 Non-pressure chronic ulcer of other part of left foot with fat layer exposed; M20.22 Hallux rigidus, left foot; M20.21 Hallux rigidus, right foot; Z89.421 Acquired absence of other right toe(s); Z79.84 Long term (current) use of oral hypoglycemic drugs | CPT/HCPCS: 11042; A6402 ==

== ENCOUNTER 2017-10-31 11:04 | Outpatient (CLI) | payer MEDICARE ==
[2017-10-31 12:02] LABS: CREATININE 0.9 mg/dL (0.6-1.3); POTASSIUM 4.4 mmol/L (3.5-5.1)
[2017-10-31 12:12] LABS: INR 0.95 (0.87-1.13); PROTHROMBIN TIME 9.9 SECS (9.5-12.7)
[2017-10-31 12:27] LABS: BASOPHILS % (AUTO) 0.6 % (0.0-2.0); EOSINOPHILS # (AUTO) 0.1 /CMM (0.0-0.7); HEMATOCRIT 42 % (33-45); HEMOGLOBIN 14.2 g/dL (11.5-14.8); LYMPHOCYTES # (AUTO) 1.5 /CMM (0.8-4.8); LYMPHOCYTES % (AUTO) 23.4 % (20.0-44.0); MEAN CORPUSCULAR HEMOGLOBIN 30 PG (26.0-33.0); MEAN CORPUSCULAR HGB CONC 34 g/dl (31.0-36.0); MEAN CORPUSCULAR VOLUME 88 fL (82-100); MONOCYTES # (AUTO) 0.4 /CMM (0.1-1.30); MONOCYTES % (AUTO) 5.9 % (2.0-12.0); NEUTROPHILS # (AUTO) 4.5 /CMM (1.8-8.9); NEUTROPHILS % (AUTO) 68.1 % (43.0-81.0); PLATELET COUNT (AUTO) 300 /CMM (150-450); RDW COEFFICIENT OF VARIATION 13.1 (11.5-15.0); RED BLOOD CELL COUNT(AUTO) 4.73 MIL/uL (4.0-5.2); WHITE BLOOD COUNT (AUTO) 6.6 K/uL (4.3-11.0)
== END 2017-10-31 23:59 | disposition home or self-care (01) ==
LOC: RAD 11:04
PROVIDERS: ATTEND Podiatrist Foot & Ankle Surgery
DX: Z01.818 Encounter for other preprocedural examination (principal); M20.11 Hallux valgus (acquired), right foot; I70.0 Atherosclerosis of aorta; E11.621 Type 2 diabetes mellitus with foot ulcer; R06.89 Other abnormalities of breathing
CPT/HCPCS: 36415; 71046; 80048-TC; 85025-TC; 85730-TC

== ENCOUNTER 2017-11-05 13:00 | Outpatient (CLI) | payer MEDICARE | END 2017-11-05 23:59 | disposition home or self-care (01) | LOC: WOU 13:00 | PROVIDERS: ATTEND Podiatrist Foot & Ankle Surgery | DX: E11.621 Type 2 diabetes mellitus with foot ulcer (principal); L97.412 Non-pressure chronic ulcer of right heel and midfoot with fat layer exposed; L97.522 Non-pressure chronic ulcer of other part of left foot with fat layer exposed; E11.42 Type 2 diabetes mellitus with diabetic polyneuropathy; Z89.421 Acquired absence of other right toe(s); M20.12 Hallux valgus (acquired), left foot; M20.11 Hallux valgus (acquired), right foot; M20.21 Hallux rigidus, right foot; E11.610 Type 2 diabetes mellitus with diabetic neuropathic arthropathy; Z79.84 Long term (current) use of oral hypoglycemic drugs | CPT/HCPCS: 11042; A6402 ==

== ENCOUNTER 2017-11-14 12:00 | Outpatient (CLI) | payer MEDICARE ==
[2017-11-15] MEDS ORDERED: LEVO175T7 PO (09:52)
[2017-11-15] MEDS ORDERED: DULA1.5P SQ (09:56)
[2017-11-15] MEDS ORDERED: EMPA25TA PO (09:56)
[2017-11-16] MEDS ORDERED: ATOR10TA PO (15:12)
[2017-11-16] MEDS ORDERED: CEPH-570 PO (15:12)
== END 2017-11-14 23:59 | disposition home or self-care (01) ==
LOC: WOU 12:00
PROVIDERS: ATTEND Nurse Practitioner Acute Care
DX: Z01.818 Encounter for other preprocedural examination (principal); Z01.810 Encounter for preprocedural cardiovascular examination; M20.11 Hallux valgus (acquired), right foot; E03.9 Hypothyroidism, unspecified; Z89.422 Acquired absence of other left toe(s); M21.612 Bunion of left foot; G47.00 Insomnia, unspecified; E11.42 Type 2 diabetes mellitus with diabetic polyneuropathy; Z79.84 Long term (current) use of oral hypoglycemic drugs; Z79.899 Other long term (current) drug therapy; E11.621 Type 2 diabetes mellitus with foot ulcer; L97.511 Non-pressure chronic ulcer of other part of right foot limited to breakdown of skin; I70.0 Atherosclerosis of aorta; M21.611 Bunion of right foot
CPT/HCPCS: G0463; J0690; J1100; J2370; J2405; J3490

== ENCOUNTER 2017-11-15 08:47 | Inpatient (IN) | payer MEDICARE ==
[2017-11-15] VITALS (10 sets, daily range): BP systolic 103–138; BP diastolic 50–88
[2017-11-15] MEDS ORDERED: LEVO175T7 PO (09:52)
[2017-11-15] MEDS ORDERED: DULA1.5P SQ (09:56)
[2017-11-15] MEDS ORDERED: EMPA25TA PO (09:56)
--- NOTE | 2017-11-15 10:00 | NUR ---
MS RN NOTED ADMITTED 67 YEAR OLD, FEMALE FROM HOME. PATIENT ADMITTED FOR SURGERY OF RIGHT METATARSOPHALANGEAL JOINT FUSION. PATIENT AWAKE, ALERT AND ORIENTED X 4. VERBALLY RESPONSIVE AND RESPONDS TO VERBAL AND TACTILE STIMULI. BREATHING EVEN AND UNLABORED. DENIES ANY PAIN OR DISCOMFORT. NO CHANGES IN LOC NOTED. SURGERY PROCEDURE, RISKS AND BENEFITS DISCUSSED BY MD TO PATIENT. VERIFIED INFORM CONSENT OBTAINED BY MD. PRE-OP TEACHING AND INSTRUCTIONS PROVIDED TO PATIENT AND VERBALIZED UNDERSTANDING.
[2017-11-15] MEDS ORDERED: BUPIVACAINE 0.5 % PF 150 MG/30 ML VIAL ONE (10:29)
[2017-11-15] MEDS ORDERED: LIDOCAINE 0.5% HCL 50 ML VIAL ONE (10:29)
--- NOTE | 2017-11-15 11:30 | NUR ---
MS RN NOTES PATIENT TRANSFERRED TO OR IN STABLE CONDITION
[2017-11-15] MEDS ORDERED: VANCOMYCIN 1 GM VIAL ONE (12:51)
[2017-11-15] MEDS ORDERED: HYDROGEN PEROXIDE 480 ML BOTTLE ONE (14:28)
[2017-11-15] MEDS ORDERED: BACITRACIN ZINC OINT (15 GM) 15 GM TUBE TP ONE (14:32)
[2017-11-15] MEDS ORDERED: MORPHINE SULFATE INJ 4 MG/ML DISP.SYRIN IV PRN (16:00)
[2017-11-15] MEDS ORDERED: HYDROCODONE/APAP 5/325MG 1 EACH TABLET PO PRN ×2 (16:00→17:00)
[2017-11-15] MEDS ORDERED: ONDANSETRON HCL/PF 4 MG/2 ML VIAL IVP PRN ×2 (16:00→17:00)
[2017-11-15] MEDS ORDERED: HYDROCODONE/APAP 10/325MG 1 EA TABLET PO PRN (16:00)
--- NOTE | 2017-11-15 16:00 | NUR ---
MS RN NOTES PATIENT RETURNED TO UNIT AT 1600, AWAKE, ALERT AND ORIENTED. ABLE TO MAKE NEEDS KNOWN AND FOLLOW SIMPLE INSTRUCTIONS. NO CHANGES IN LOC NOTED. COMPRESSION DRESSING INTACT, WRAPPED ON RLE. WILL CONTINUE TO MONITOR
[2017-11-15] MEDS ORDERED: MORPHINE SULFATE INJ 2 MG/ML DISP.SYRIN IV PRN (17:00)
[2017-11-15] MEDS ORDERED: MAGNESIUM HYDROXIDE 30 ML UDC PO PRN (17:00)
[2017-11-15] MEDS ORDERED: Z GUARD REMEDY 2 OZ OINT TP PRN (17:00)
[2017-11-15] MEDS ORDERED: DEXTROSE 50%-WATER 50 ML DISP.SYRIN IV PRN (17:00)
[2017-11-15] MEDS ORDERED: ZOLPIDEM TARTRATE 5 MG TABLET PO PRN (17:00)
[2017-11-15] MEDS ORDERED: ACETAMINOPHEN 325 MG TABLET PO PRN (17:00)
[2017-11-15 17:39] LABS: CALCIUM, SERUM 8.5 mg/dL (8.5-10.1); CREATININE 0.8 mg/dL (0.6-1.3); POTASSIUM 4.7 mmol/L (3.5-5.1)
[2017-11-15 17:58] LABS: EOSINOPHILS % (AUTO) 0.2 % (0.0-6.0); HEMATOCRIT 39 % (33-45); HEMOGLOBIN 13.3 g/dL (11.5-14.8); LYMPHOCYTES # (AUTO) 0.4 /CMM (0.8-4.8); LYMPHOCYTES % (AUTO) 5.7 % (20.0-44.0); MEAN CORPUSCULAR HEMOGLOBIN 30 PG (26.0-33.0); MEAN CORPUSCULAR HGB CONC 34 g/dl (31.0-36.0); MEAN CORPUSCULAR VOLUME 88 fL (82-100); MONOCYTES # (AUTO) 0.1 /CMM (0.1-1.30); MONOCYTES % (AUTO) 1.8 % (2.0-12.0); NEUTROPHILS % (AUTO) 92.3 % (43.0-81.0); PLATELET COUNT (AUTO) 237 /CMM (150-450); RED BLOOD CELL COUNT(AUTO) 4.46 MIL/uL (4.0-5.2); WHITE BLOOD COUNT (AUTO) 6.5 K/uL (4.3-11.0)
[2017-11-15] MEDS: METFORMIN 500 MG TABLET PO SCH (18:05)
[2017-11-15] MEDS: BLOOD SUGAR DIAGNOSTIC 1 EACH STRIP IN SCH ×2 (18:05→22:18)
[2017-11-15] MEDS: INSULIN REGULAR, HUMAN 100 UNIT/ML 3 ML VIAL SQ PRN ×2 (18:12→22:25)
--- NOTE | 2017-11-15 19:30 | NUR ---
MS RN NOTES PATIENT RESTING INSIDE ROOM, AWAKE, ALERT AND ORIENTED X 4. ABLE TO MAKE NEEDS KNOWN AND FOLLOW SIMPLE INSTRUCTIONS. BREATHING EVEN AND UNLABORED. NO SOB OR CONGESTION NOTED AT THIS TIME. FSBS OBTAINED PRIOR TO DINNER WITH RESULT OF 203 MG/DL, GIVEN 4 UNITS PER SLIDING SCALE. VS OBTAINED Q15 MINUTES X 1 AFTER RETURNING FROM SURGERY,THEN [id number] X 1, THEN EVERY HOUR X 4. WILL CONTINUE TO MONITOR. ENDORSED TO INCOMING SHIFT
--- NOTE | 2017-11-15 19:33 | NUR ---
MS RN NOTES RECEIVED PATIENT IN BED, AWAKE, A/O X4, VERBALLY RESPONSIVE. BREATHING EVEN AND UNLABORED. NO SOB NOR DISTRESS AT THIS TIME. IV SITE ON RFA INTACT AND PATENT. NO S/S OF INFILTRATION NOTED. RIGHT LEG- FOOT WITH CLEAN AND INTACT DRESSING, NO BLEEDING NOTED AT THIS TIME. SAFETY PRECAUTIONS OBSERVED. ALL NEEDS ATTENDED AND MET. CALL LIGHT WITHIN REACH. WILL CONTINUE TO MONITOR.
[2017-11-15] MEDS ORDERED: DULOXETINE HCL 30 MG CAPSULE.DR PO SCH (22:00)
[2017-11-16] MEDS ORDERED: CEFAZOLIN 1 GM ONE ×2 (00:16→00:18)
[2017-11-16] MEDS: CEFAZOLIN 1 GM in IV NS 0.9% 50 ML IV SCH ×2 (00:37→05:47)
[2017-11-16 04:00] VITALS: BP 98/46
[2017-11-16] MEDS: BLOOD SUGAR DIAGNOSTIC 1 EACH STRIP IN SCH ×2 (05:45→12:07)
[2017-11-16] MEDS: INSULIN REGULAR, HUMAN 100 UNIT/ML 3 ML VIAL SQ PRN ×2 (05:51→13:03)
[2017-11-16 06:31] LABS: BASOPHILS % (AUTO) 0.3 % (0.0-2.0); HEMATOCRIT 36 % (33-45); HEMOGLOBIN 12.1 g/dL (11.5-14.8); LYMPHOCYTES # (AUTO) 0.7 /CMM (0.8-4.8); LYMPHOCYTES % (AUTO) 9.6 % (20.0-44.0); MEAN CORPUSCULAR HEMOGLOBIN 30 PG (26.0-33.0); MEAN CORPUSCULAR HGB CONC 34 g/dl (31.0-36.0); MEAN CORPUSCULAR VOLUME 88 fL (82-100); MONOCYTES # (AUTO) 0.7 /CMM (0.1-1.30); MONOCYTES % (AUTO) 9.5 % (2.0-12.0); NEUTROPHILS # (AUTO) 6.1 /CMM (1.8-8.9); NEUTROPHILS % (AUTO) 80.6 % (43.0-81.0); PLATELET COUNT (AUTO) 249 /CMM (150-450); RDW COEFFICIENT OF VARIATION 12.8 (11.5-15.0); RED BLOOD CELL COUNT(AUTO) 4.07 MIL/uL (4.0-5.2); WHITE BLOOD COUNT (AUTO) 7.6 K/uL (4.3-11.0)
--- NOTE | 2017-11-16 06:48 | NUR ---
MS RN NOTES PATIENT IN BED, ASLEEP AT THIS TIME, AROUSES EASILY, A/O X4, VERBALLY RESPONSIVE. BREATHING EVEN AND UNLABORED. NO SOB NOR DISTRESS AT THIS TIME. IV SITE ON RFA INTACT AND PATENT. NO S/S OF INFILTRATION NOTED. RIGHT LEG- FOOT WITH CLEAN AND INTACT DRESSING, NO BLEEDING NOTED. NO S/S OF HYPO/ HYPERGLYCEMIA NOTED. SAFETY PRECAUTIONS OBSERVED. ALL NEEDS ATTENDED AND MET. ALL DUE MEDS GIVEN. CALL LIGHT WITHIN REACH. WILL ENDORSE TO NEXT SHIFT FOR ANATOLIY.
[2017-11-16 07:00] LABS: CALCIUM, SERUM 8.4 mg/dL (8.5-10.1); CREATININE 0.9 mg/dL (0.6-1.3); MAGNESIUM 2.2 mg/dL (1.8-2.4); PHOSPHORUS 4.9 mg/dL (2.5-4.9); POTASSIUM 5.1 mmol/L (3.5-5.1)
[2017-11-16] MEDS ORDERED: LEVOTHYROXINE SODIUM 175 MCG TABLET PO SCH (07:30)
[2017-11-16 08:00] VITALS: BP 111/62
[2017-11-16] MEDS ORDERED: Medication Not On Formulary EA (Empagliflozin (Jardiance) 25 MG) PO SCH (09:00)
--- NOTE | 2017-11-16 09:04 | NUR ---
MS/RN NOTES PATIENT RESTING IN BED COMFORTABLY, ALERT AND ORIENTED X4, VERBALLY RESPONSIVE, NO APPARENT DISTRESS, ON ROOM AIR. PATIENT DENIES AND PAIN OR DISCOMFORT. NO RESPIRATORY DISTRESS NOTED. PATIENT NOTED WITH RIGHT LEG FOOT DRESSING IN PLACE S/P METATORSAPHALARGEAL JOIN FUSION WITH WOUND CLOSURE BY DR MORRIS 11/15/2017. IF TO RIGHT FA 20G H/L. DISCHARGE PLANNING IN PLACE. PATIENT READY FOR D/C. SAFETY MEASURES RENDERED, CALL LIGHT PLACED WITHIN REACH. WILL CONTINUE TO MONITOR.
[2017-11-16] MEDS: METFORMIN 500 MG TABLET PO SCH (09:34)
[2017-11-16] MEDS ORDERED: MENTHOL/CETYLPYRD (CEPACOL) 1 LOZ LOZENGE PO PRN (12:30)
[2017-11-16] MEDS ORDERED: CEFAZOLIN 1 GM in IV NS 0.9% 50 ML IV SCH (13:00)
--- NOTE | 2017-11-16 15:10 | NUR ---
MS/RN NOTES PATIENT SEEN BY JAKE FOR POSSIBLE DISCHARGE. DISCUSSED WITH CONSERVATION PLANNER AND CM REGARDING POST DISCHARGE PLANNING AND MANAGEMENT. WILL CONTINUE TO MONITOR
[2017-11-16] MEDS ORDERED: CEPH-570 PO (15:12)
[2017-11-16] MEDS ORDERED: ATOR10TA PO (15:12)
[2017-11-16 16:00] VITALS: BP 132/62
--- NOTE | 2017-11-16 16:46 | NUR ---
D/ NOTE ORDER RECEIVED FOR DISCHARGE, ALL FORMS PRINTED, COPIED AND SIGNED BY PATIENT. PROVIDED PATIENT DISCHARGE ORDERS, PRESCRIPTION PROVIDED AND INSTRUCTED ON NEW MEDICATION ORDER OF NORCO, PO ANTIBIOTICS KEFLEX AND LIPITOR. PATIENT DISCHARGED WITH HOME HEALTH FOR PT, WOUND CARE AND POST OP MANAGEMENT CARE. WALKER PROVIDED TO PATIENT ORDERED BY CM. PATIENT DISCHARGED WITH DRESSING OF THE RIGHT LEG WITH BRACE IN PLACE UNABLE TO TAKE PICTURE OF THE SURGICAL SITE. PIC OF LEFT FOOT SOLE HEALED WOUND TAKEN AND PLACED IN CHART. IV REMOVED AND COVERED PROPERLY. PATIENT AGREED FOR DISCHARGE AND AGREED TO ALL INSTRUCTIONS GIVEN. PATIENT LEFT IN STABLE CONDITION WITH BROTHER VIA PRIVATE CAR
[2017-11-16] MEDS ORDERED: ATORVASTATIN 10 MG TABLET PO SCH (22:00)
== END 2017-11-16 16:46 | disposition home or self-care (01) | DRG 983 ==
LOC: DS 08:47 → MEDSG2 08:49
PROVIDERS: ADMIT Nurse Practitioner Acute Care; ATTEND Nurse Practitioner Acute Care
PROC: 0SGM04Z Fusion of Right Metatarsal-Phalangeal Joint with Internal Fixation Device, Open Approach (ICD-10-PCS; 2017-11-15)
PROC: 0L8N0ZZ Division of Right Lower Leg Tendon, Open Approach (ICD-10-PCS; 2017-11-15)
PROC: 0KU Muscles, Supplement (ICD-10-PCS; principal; 2017-11-15 12:47)
PROC: 0KBV0ZZ Excision of Right Foot Muscle, Open Approach (ICD-10-PCS; 2017-11-15 12:47)
DX: E11.621 Type 2 diabetes mellitus with foot ulcer (principal); L97.519 Non-pressure chronic ulcer of other part of right foot with unspecified severity; E11.21 Type 2 diabetes mellitus with diabetic nephropathy; E11.42 Type 2 diabetes mellitus with diabetic polyneuropathy; E11.628 Type 2 diabetes mellitus with other skin complications; E11.65 Type 2 diabetes mellitus with hyperglycemia; L08.9 Local infection of the skin and subcutaneous tissue, unspecified; E03.9 Hypothyroidism, unspecified; E78.5 Hyperlipidemia, unspecified; I10 Essential (primary) hypertension; Z79.84 Long term (current) use of oral hypoglycemic drugs; Z79.899 Other long term (current) drug therapy
CPT/HCPCS: 36415; 73620-TC; 80048-TC; 80061-TC; 82962-TC; 83735-TC; 84100-TC; 85025-TC; 86850-TC; 87070-TC; 87081-TC; 87186-TC; A4216; A6253; A6402; J0690; J1100; J1815; J2370; J2405; J3370; J3490; J7030; Z7610

== ENCOUNTER 2017-11-22 12:50 | Outpatient (CLI) | payer MEDICARE ==
[~2017-11-22 12:50] MED LIST changes: +ATOR10TA PO; +CEPH-570 PO; -CIPR500T5 PO; +DULA1.5P SQ; +EMPA25TA PO; -FLUC100T8 PO; -LEVO150T8 PO; +LEVO175T7 PO; -SULF1TAB48 PO
== END 2017-11-22 23:59 | disposition home health service (06) ==
LOC: WOU 12:50
PROVIDERS: ATTEND Podiatrist Foot & Ankle Surgery
DX: E11.621 Type 2 diabetes mellitus with foot ulcer (principal); L97.412 Non-pressure chronic ulcer of right heel and midfoot with fat layer exposed; E11.42 Type 2 diabetes mellitus with diabetic polyneuropathy; L30.8 Other specified dermatitis; M24.674 Ankylosis, right foot
CPT/HCPCS: 29730; A6402; G0463

== ENCOUNTER 2017-12-04 13:25 | Outpatient (CLI) | payer MEDICARE | END 2017-12-04 23:59 | disposition home health service (06) | LOC: WOU 13:25 | PROVIDERS: ATTEND Specialist | DX: T86.828 Other complications of skin graft (allograft) (autograft) (principal); E11.621 Type 2 diabetes mellitus with foot ulcer; L97.512 Non-pressure chronic ulcer of other part of right foot with fat layer exposed; E11.620 Type 2 diabetes mellitus with diabetic dermatitis; E11.42 Type 2 diabetes mellitus with diabetic polyneuropathy; L97.513 Non-pressure chronic ulcer of other part of right foot with necrosis of muscle; E03.9 Hypothyroidism, unspecified; M20.12 Hallux valgus (acquired), left foot; M20.11 Hallux valgus (acquired), right foot | CPT/HCPCS: 11042; A6197 ×2; A6209; A6402 ==

== ENCOUNTER 2017-12-10 13:45 | Outpatient (CLI) | payer MEDICARE | END 2017-12-10 23:59 | disposition home or self-care (01) | LOC: WOU 13:45 | PROVIDERS: ATTEND Specialist | DX: T86.828 Other complications of skin graft (allograft) (autograft) (principal); E11.621 Type 2 diabetes mellitus with foot ulcer; L97.512 Non-pressure chronic ulcer of other part of right foot with fat layer exposed; M20.11 Hallux valgus (acquired), right foot; M20.12 Hallux valgus (acquired), left foot; E11.42 Type 2 diabetes mellitus with diabetic polyneuropathy; E11.620 Type 2 diabetes mellitus with diabetic dermatitis; E03.9 Hypothyroidism, unspecified; Z79.84 Long term (current) use of oral hypoglycemic drugs; Z79.899 Other long term (current) drug therapy | CPT/HCPCS: A6197; A6402; G0463; A6209 ==

== ENCOUNTER 2017-12-20 13:04 | Outpatient (CLI) | payer MEDICARE | END 2017-12-20 23:59 | disposition home health service (06) | LOC: WOU 13:04 | PROVIDERS: ATTEND Podiatrist Foot & Ankle Surgery | DX: T81.31XA Disruption of external operation (surgical) wound, not elsewhere classified, initial encounter (principal); R60.0 Localized edema; M24.674 Ankylosis, right foot; Z91.19 Patient's noncompliance with other medical treatment and regimen; E11.42 Type 2 diabetes mellitus with diabetic polyneuropathy; E11.621 Type 2 diabetes mellitus with foot ulcer; L97.512 Non-pressure chronic ulcer of other part of right foot with fat layer exposed; E03.9 Hypothyroidism, unspecified; Z79.4 Long term (current) use of insulin; Z79.82 Long term (current) use of aspirin | CPT/HCPCS: 11042; A6209; A6402 ==

== ENCOUNTER 2017-12-25 14:03 | Outpatient (CLI) | payer MEDICARE | END 2017-12-25 23:59 | disposition home or self-care (01) | LOC: RAD 14:03 | PROVIDERS: ATTEND Podiatrist Foot & Ankle Surgery | DX: M79.89 Other specified soft tissue disorders (principal) | CPT/HCPCS: 73630-TC ==

== ENCOUNTER 2017-12-27 13:15 | Outpatient (CLI) | payer MEDICARE | END 2017-12-27 23:59 | disposition home health service (06) | LOC: WOU 13:15 | PROVIDERS: ATTEND Podiatrist Foot & Ankle Surgery | DX: E11.621 Type 2 diabetes mellitus with foot ulcer (principal); L97.422 Non-pressure chronic ulcer of left heel and midfoot with fat layer exposed; T81.31XA Disruption of external operation (surgical) wound, not elsewhere classified, initial encounter; T85.62 Displacement of other specified internal prosthetic devices, implants and grafts; E11.42 Type 2 diabetes mellitus with diabetic polyneuropathy; R60.0 Localized edema; Z91.19 Patient's noncompliance with other medical treatment and regimen; Z79.4 Long term (current) use of insulin; Z79.899 Other long term (current) drug therapy | CPT/HCPCS: 11042; A6209; A6402 ==

== ENCOUNTER 2018-01-03 13:17 | Outpatient (CLI) | payer MEDICARE | END 2018-01-03 23:59 | disposition home health service (06) | LOC: WOU 13:17 | PROVIDERS: ATTEND Podiatrist Foot & Ankle Surgery | DX: T86.821 Skin graft (allograft) (autograft) failure (principal); E11.42 Type 2 diabetes mellitus with diabetic polyneuropathy; Z89.421 Acquired absence of other right toe(s); Z86.31 Personal history of diabetic foot ulcer; L84 Corns and callosities; Z91.19 Patient's noncompliance with other medical treatment and regimen; B35.1 Tinea unguium; M20.11 Hallux valgus (acquired), right foot; M20.41 Other hammer toe(s) (acquired), right foot; Z79.4 Long term (current) use of insulin; Z79.899 Other long term (current) drug therapy; L97.512 Non-pressure chronic ulcer of other part of right foot with fat layer exposed | CPT/HCPCS: 11042; A6209; A6402 ==

== ENCOUNTER 2018-01-10 13:19 | Outpatient (CLI) | payer MEDICARE | END 2018-01-10 23:59 | disposition home health service (06) | LOC: WOU 13:19 | PROVIDERS: ATTEND Podiatrist Foot & Ankle Surgery | DX: T87.89 Other complications of amputation stump (principal); E11.621 Type 2 diabetes mellitus with foot ulcer; L97.512 Non-pressure chronic ulcer of other part of right foot with fat layer exposed; E11.42 Type 2 diabetes mellitus with diabetic polyneuropathy; R60.0 Localized edema; Z89.421 Acquired absence of other right toe(s); M20.10 Hallux valgus (acquired), unspecified foot; M20.41 Other hammer toe(s) (acquired), right foot | CPT/HCPCS: 11042; A6209; A6402 ==

== ENCOUNTER 2018-01-17 13:18 | Outpatient (CLI) | payer MEDICARE ==
[~2018-01-17 13:18] MED LIST changes: +METF-440 PO; -METF500T4 PO
== END 2018-01-17 23:59 | disposition home health service (06) ==
LOC: WOU 13:18
PROVIDERS: ATTEND Podiatrist Foot & Ankle Surgery
DX: E11.620 Type 2 diabetes mellitus with diabetic dermatitis (principal); L97.512 Non-pressure chronic ulcer of other part of right foot with fat layer exposed; B35.1 Tinea unguium; M20.42 Other hammer toe(s) (acquired), left foot; L84 Corns and callosities; E11.42 Type 2 diabetes mellitus with diabetic polyneuropathy; E11.65 Type 2 diabetes mellitus with hyperglycemia; Z79.4 Long term (current) use of insulin
CPT/HCPCS: 11042; A6209; A6402

== ENCOUNTER 2018-01-24 12:35 | Outpatient (CLI) | payer MEDICARE | END 2018-01-24 23:59 | disposition home health service (06) | LOC: WOU 12:35 | PROVIDERS: ATTEND Podiatrist Foot & Ankle Surgery | DX: E11.621 Type 2 diabetes mellitus with foot ulcer (principal); T81.89XA Other complications of procedures, not elsewhere classified, initial encounter; L97.512 Non-pressure chronic ulcer of other part of right foot with fat layer exposed; L97.421 Non-pressure chronic ulcer of left heel and midfoot limited to breakdown of skin; E11.65 Type 2 diabetes mellitus with hyperglycemia; E11.42 Type 2 diabetes mellitus with diabetic polyneuropathy; Z79.4 Long term (current) use of insulin; Z79.82 Long term (current) use of aspirin; Z98.890 Other specified postprocedural states | CPT/HCPCS: 11042; A6209; A6402 ==

== ENCOUNTER 2018-01-31 13:02 | Outpatient (CLI) | payer MEDICARE | END 2018-01-31 23:59 | disposition home health service (06) | LOC: WOU 13:02 | PROVIDERS: ATTEND Podiatrist Foot & Ankle Surgery | DX: E11.621 Type 2 diabetes mellitus with foot ulcer (principal); L97.512 Non-pressure chronic ulcer of other part of right foot with fat layer exposed; L97.522 Non-pressure chronic ulcer of other part of left foot with fat layer exposed; E11.65 Type 2 diabetes mellitus with hyperglycemia; R60.0 Localized edema; E11.42 Type 2 diabetes mellitus with diabetic polyneuropathy; Z89.421 Acquired absence of other right toe(s); M20.10 Hallux valgus (acquired), unspecified foot; Z79.4 Long term (current) use of insulin; Z79.82 Long term (current) use of aspirin; Z79.899 Other long term (current) drug therapy | CPT/HCPCS: 11042; 15275; A6209; A6402 ==

== ENCOUNTER 2018-02-07 13:00 | Outpatient (CLI) | payer MEDICARE | END 2018-02-07 23:59 | disposition home health service (06) | LOC: WOU 13:00 | PROVIDERS: ATTEND Podiatrist Foot & Ankle Surgery | DX: E11.621 Type 2 diabetes mellitus with foot ulcer (principal); L97.512 Non-pressure chronic ulcer of other part of right foot with fat layer exposed; L97.522 Non-pressure chronic ulcer of other part of left foot with fat layer exposed; E11.65 Type 2 diabetes mellitus with hyperglycemia; E11.42 Type 2 diabetes mellitus with diabetic polyneuropathy; Z79.4 Long term (current) use of insulin; Z79.82 Long term (current) use of aspirin; Z79.891 Long term (current) use of opiate analgesic | CPT/HCPCS: 11042; 15275; A6402; Q4133 ==

== ENCOUNTER 2018-02-14 13:00 | Outpatient (CLI) | payer MEDICARE | END 2018-02-14 23:59 | disposition home health service (06) | LOC: WOU 13:00 | PROVIDERS: ATTEND Podiatrist Foot & Ankle Surgery | DX: E11.621 Type 2 diabetes mellitus with foot ulcer (principal); L97.512 Non-pressure chronic ulcer of other part of right foot with fat layer exposed; L97.522 Non-pressure chronic ulcer of other part of left foot with fat layer exposed; E11.65 Type 2 diabetes mellitus with hyperglycemia; E11.42 Type 2 diabetes mellitus with diabetic polyneuropathy; Z79.4 Long term (current) use of insulin; Z79.82 Long term (current) use of aspirin | CPT/HCPCS: 15275; Q4133 ==

== ENCOUNTER 2018-02-20 13:41 | Outpatient (CLI) | payer MEDICARE | END 2018-02-20 23:59 | disposition home or self-care (01) | LOC: RAD 13:41 | PROVIDERS: ATTEND Podiatrist Foot & Ankle Surgery | DX: M85.871 Other specified disorders of bone density and structure, right ankle and foot (principal); M19.071 Primary osteoarthritis, right ankle and foot; M79.89 Other specified soft tissue disorders; E11.9 Type 2 diabetes mellitus without complications; Z98.890 Other specified postprocedural states | CPT/HCPCS: 73630-TC ==

== ENCOUNTER 2018-02-21 13:04 | Outpatient (CLI) | payer MEDICARE | END 2018-02-21 23:59 | disposition home health service (06) | LOC: WOU 13:04 | PROVIDERS: ATTEND Podiatrist Foot & Ankle Surgery | DX: Z48.817 Encounter for surgical aftercare following surgery on the skin and subcutaneous tissue (principal); E11.621 Type 2 diabetes mellitus with foot ulcer; L97.422 Non-pressure chronic ulcer of left heel and midfoot with fat layer exposed; E11.42 Type 2 diabetes mellitus with diabetic polyneuropathy; Z79.4 Long term (current) use of insulin; Z79.84 Long term (current) use of oral hypoglycemic drugs; Z89.421 Acquired absence of other right toe(s) | CPT/HCPCS: 11042; A6402 ==

== ENCOUNTER 2018-02-28 12:58 | Outpatient (CLI) | payer MEDICARE | END 2018-02-28 23:59 | disposition home or self-care (01) | LOC: WOU 12:58 | PROVIDERS: ATTEND Podiatrist Foot & Ankle Surgery | DX: Z09 Encounter for follow-up examination after completed treatment for conditions other than malignant neoplasm (principal); Z86.31 Personal history of diabetic foot ulcer; E11.42 Type 2 diabetes mellitus with diabetic polyneuropathy; Z79.4 Long term (current) use of insulin; M20.12 Hallux valgus (acquired), left foot; M20.42 Other hammer toe(s) (acquired), left foot; L84 Corns and callosities; R60.9 Edema, unspecified | CPT/HCPCS: A6402; G0463 ==

== ENCOUNTER 2018-03-07 13:10 | Outpatient (CLI) | payer MEDICARE | END 2018-03-07 23:59 | disposition home or self-care (01) | LOC: WOU 13:10 | PROVIDERS: ATTEND Podiatrist Foot & Ankle Surgery | DX: Z48.817 Encounter for surgical aftercare following surgery on the skin and subcutaneous tissue (principal); E11.42 Type 2 diabetes mellitus with diabetic polyneuropathy; L84 Corns and callosities; M20.12 Hallux valgus (acquired), left foot; M20.42 Other hammer toe(s) (acquired), left foot; Z86.31 Personal history of diabetic foot ulcer | CPT/HCPCS: A6402; G0463 ==

== ENCOUNTER 2018-06-18 13:30 | Outpatient (CLI) | payer MEDICARE ==
[~2018-06-18 13:30] MED LIST changes: -METF-440 PO; +METF500T6 PO
== END 2018-06-18 23:59 | disposition home health service (06) ==
LOC: WOU 13:30
PROVIDERS: ATTEND Podiatrist Foot & Ankle Surgery
DX: E11.621 Type 2 diabetes mellitus with foot ulcer (principal); L97.425 Non-pressure chronic ulcer of left heel and midfoot with muscle involvement without evidence of necrosis; L84 Corns and callosities; L03.116 Cellulitis of left lower limb; M20.12 Hallux valgus (acquired), left foot; E11.42 Type 2 diabetes mellitus with diabetic polyneuropathy; Z79.4 Long term (current) use of insulin
CPT/HCPCS: 11043; 87070-TC; 87186-TC; A6402

== ENCOUNTER 2018-06-25 12:50 | Outpatient (CLI) | payer MEDICARE | END 2018-06-25 23:59 | disposition home health service (06) | LOC: WOU 12:50 | PROVIDERS: ATTEND Podiatrist Foot & Ankle Surgery | DX: E11.621 Type 2 diabetes mellitus with foot ulcer (principal); L97.423 Non-pressure chronic ulcer of left heel and midfoot with necrosis of muscle; L03.116 Cellulitis of left lower limb; R60.0 Localized edema; Z79.4 Long term (current) use of insulin; E11.42 Type 2 diabetes mellitus with diabetic polyneuropathy; M24.674 Ankylosis, right foot | CPT/HCPCS: 11043; A6402; Z7610 ==

== ENCOUNTER 2018-07-08 12:30 | Outpatient (CLI) | payer MEDICARE ==
[~2018-07-08 12:30] MED LIST changes: +METF-440 PO; -METF500T6 PO
== END 2018-07-08 23:59 | disposition home health service (06) ==
LOC: WOU 12:30
PROVIDERS: ATTEND Podiatrist Foot & Ankle Surgery
DX: E11.621 Type 2 diabetes mellitus with foot ulcer (principal); L97.525 Non-pressure chronic ulcer of other part of left foot with muscle involvement without evidence of necrosis; E11.42 Type 2 diabetes mellitus with diabetic polyneuropathy; Z89.421 Acquired absence of other right toe(s); M24.674 Ankylosis, right foot; M20.11 Hallux valgus (acquired), right foot; M20.40 Other hammer toe(s) (acquired), unspecified foot
CPT/HCPCS: 11042; A6402; Z7610

== ENCOUNTER 2018-07-15 13:55 | Outpatient (CLI) | payer MEDICARE | END 2018-07-15 23:59 | disposition home or self-care (01) | LOC: WOU 13:55 | PROVIDERS: ATTEND Podiatrist Foot & Ankle Surgery | DX: E11.621 Type 2 diabetes mellitus with foot ulcer (principal); L97.423 Non-pressure chronic ulcer of left heel and midfoot with necrosis of muscle; E11.65 Type 2 diabetes mellitus with hyperglycemia; Z79.4 Long term (current) use of insulin; E11.42 Type 2 diabetes mellitus with diabetic polyneuropathy; Z89.421 Acquired absence of other right toe(s) | CPT/HCPCS: 11043; A6402; Z7610 ==

== ENCOUNTER 2018-07-22 13:42 | Outpatient (CLI) | payer MEDICARE | END 2018-07-22 23:59 | disposition home or self-care (01) | LOC: WOU 13:42 | PROVIDERS: ATTEND Podiatrist Foot & Ankle Surgery | DX: E11.621 Type 2 diabetes mellitus with foot ulcer (principal); L97.425 Non-pressure chronic ulcer of left heel and midfoot with muscle involvement without evidence of necrosis; E11.42 Type 2 diabetes mellitus with diabetic polyneuropathy; Z79.4 Long term (current) use of insulin; R60.9 Edema, unspecified; M20.10 Hallux valgus (acquired), unspecified foot; Z98.1 Arthrodesis status | CPT/HCPCS: 11043; A6402; Z7610 ==

== ENCOUNTER 2018-07-29 11:33 | Outpatient (CLI) | payer MEDICARE | END 2018-07-29 23:59 | disposition home or self-care (01) | LOC: WOU 11:33 | PROVIDERS: ATTEND Podiatrist Foot & Ankle Surgery | DX: E11.621 Type 2 diabetes mellitus with foot ulcer (principal); L97.422 Non-pressure chronic ulcer of left heel and midfoot with fat layer exposed; E11.42 Type 2 diabetes mellitus with diabetic polyneuropathy; Z79.4 Long term (current) use of insulin; Z79.899 Other long term (current) drug therapy | CPT/HCPCS: 15275; A6402; Q4132; Z7610 ==

== ENCOUNTER 2018-08-05 13:10 | Outpatient (CLI) | payer MEDICARE | END 2018-08-05 23:59 | disposition home or self-care (01) | LOC: WOU 13:10 | PROVIDERS: ATTEND Podiatrist Foot & Ankle Surgery | DX: E11.621 Type 2 diabetes mellitus with foot ulcer (principal); L97.422 Non-pressure chronic ulcer of left heel and midfoot with fat layer exposed; E11.42 Type 2 diabetes mellitus with diabetic polyneuropathy; Z79.4 Long term (current) use of insulin; Z98.1 Arthrodesis status; Z89.421 Acquired absence of other right toe(s) | CPT/HCPCS: 15275; A6402; Q4132; Z7610 ==

== ENCOUNTER 2018-09-30 13:02 | Outpatient (CLI) | payer MEDICARE | END 2018-09-30 23:59 | disposition home or self-care (01) | LOC: WOU 13:02 | PROVIDERS: ATTEND Podiatrist Foot & Ankle Surgery | DX: E11.621 Type 2 diabetes mellitus with foot ulcer (principal); L97.422 Non-pressure chronic ulcer of left heel and midfoot with fat layer exposed; E11.42 Type 2 diabetes mellitus with diabetic polyneuropathy; L84 Corns and callosities; Z79.4 Long term (current) use of insulin; Z79.899 Other long term (current) drug therapy | CPT/HCPCS: 11042; A6402; Z7610 ==

== ENCOUNTER 2018-10-07 13:35 | Outpatient (CLI) | payer MEDICARE | END 2018-10-07 23:59 | disposition home or self-care (01) | LOC: WOU 13:35 | PROVIDERS: ATTEND Podiatrist Foot & Ankle Surgery | DX: E11.621 Type 2 diabetes mellitus with foot ulcer (principal); L97.422 Non-pressure chronic ulcer of left heel and midfoot with fat layer exposed; L97.412 Non-pressure chronic ulcer of right heel and midfoot with fat layer exposed; E11.42 Type 2 diabetes mellitus with diabetic polyneuropathy; Z79.4 Long term (current) use of insulin; M20.12 Hallux valgus (acquired), left foot; R60.0 Localized edema; Z79.899 Other long term (current) drug therapy | CPT/HCPCS: 11042; A6402; Z7610 ==

== ENCOUNTER 2018-10-28 13:40 | Outpatient (CLI) | payer MEDICARE | END 2018-10-28 23:59 | disposition home or self-care (01) | LOC: WOU 13:40 | PROVIDERS: ATTEND Podiatrist Foot & Ankle Surgery | DX: E11.621 Type 2 diabetes mellitus with foot ulcer (principal); L97.422 Non-pressure chronic ulcer of left heel and midfoot with fat layer exposed; L97.412 Non-pressure chronic ulcer of right heel and midfoot with fat layer exposed; Z79.4 Long term (current) use of insulin; Z79.899 Other long term (current) drug therapy | CPT/HCPCS: 11042; 87070; 87075; A6402; Z7610; 87186-TC ==

== ENCOUNTER 2018-11-04 12:58 | Outpatient (CLI) | payer MEDICARE | END 2018-11-04 23:59 | disposition home or self-care (01) | LOC: WOU 12:58 | PROVIDERS: ATTEND Podiatrist Foot & Ankle Surgery | DX: E11.621 Type 2 diabetes mellitus with foot ulcer (principal); L97.422 Non-pressure chronic ulcer of left heel and midfoot with fat layer exposed; L97.412 Non-pressure chronic ulcer of right heel and midfoot with fat layer exposed; E11.42 Type 2 diabetes mellitus with diabetic polyneuropathy; Z79.4 Long term (current) use of insulin; R60.0 Localized edema; Z79.899 Other long term (current) drug therapy | CPT/HCPCS: 11042; A6402 ==

== ENCOUNTER 2018-11-11 12:50 | Outpatient (CLI) | payer MEDICARE | END 2018-11-11 23:59 | disposition home or self-care (01) | LOC: WOU 12:50 | PROVIDERS: ATTEND Podiatrist Foot & Ankle Surgery | DX: E11.621 Type 2 diabetes mellitus with foot ulcer (principal); L97.422 Non-pressure chronic ulcer of left heel and midfoot with fat layer exposed; L97.412 Non-pressure chronic ulcer of right heel and midfoot with fat layer exposed; E11.42 Type 2 diabetes mellitus with diabetic polyneuropathy; Z79.4 Long term (current) use of insulin; Z79.899 Other long term (current) drug therapy; M20.10 Hallux valgus (acquired), unspecified foot; M20.40 Other hammer toe(s) (acquired), unspecified foot | CPT/HCPCS: 11042; A6402 ==

== ENCOUNTER 2018-11-18 13:32 | Outpatient (CLI) | payer MEDICARE | END 2018-11-18 23:59 | disposition home or self-care (01) | LOC: WOU 13:32 | PROVIDERS: ATTEND Podiatrist Foot & Ankle Surgery | DX: E11.621 Type 2 diabetes mellitus with foot ulcer (principal); L97.522 Non-pressure chronic ulcer of other part of left foot with fat layer exposed; E11.42 Type 2 diabetes mellitus with diabetic polyneuropathy; M20.12 Hallux valgus (acquired), left foot; Z79.4 Long term (current) use of insulin; R60.0 Localized edema; Z79.899 Other long term (current) drug therapy | CPT/HCPCS: 11042; A6402; Z7610 ==

== ENCOUNTER 2018-11-25 12:55 | Outpatient (CLI) | payer MEDICARE | END 2018-11-25 23:59 | disposition home health service (06) | LOC: WOU 12:55 | PROVIDERS: ATTEND Podiatrist Foot & Ankle Surgery | DX: E11.621 Type 2 diabetes mellitus with foot ulcer (principal); L97.522 Non-pressure chronic ulcer of other part of left foot with fat layer exposed; E11.42 Type 2 diabetes mellitus with diabetic polyneuropathy; Z79.4 Long term (current) use of insulin; R60.0 Localized edema; M20.12 Hallux valgus (acquired), left foot; Z79.899 Other long term (current) drug therapy | CPT/HCPCS: 11042; A6402 ==

== ENCOUNTER 2018-12-02 13:05 | Outpatient (CLI) | payer MEDICARE | END 2018-12-02 23:59 | disposition home or self-care (01) | LOC: WOU 13:05 | PROVIDERS: ATTEND Podiatrist Foot & Ankle Surgery | DX: E11.621 Type 2 diabetes mellitus with foot ulcer (principal); L97.522 Non-pressure chronic ulcer of other part of left foot with fat layer exposed; E11.42 Type 2 diabetes mellitus with diabetic polyneuropathy; E11.65 Type 2 diabetes mellitus with hyperglycemia; Z79.4 Long term (current) use of insulin; Z79.899 Other long term (current) drug therapy | CPT/HCPCS: 11042; A6402 ==

== ENCOUNTER 2018-12-09 13:30 | Outpatient (CLI) | payer MEDICARE | END 2018-12-09 23:59 | disposition home or self-care (01) | LOC: WOU 13:30 | PROVIDERS: ATTEND Podiatrist Foot & Ankle Surgery | DX: E11.621 Type 2 diabetes mellitus with foot ulcer (principal); L97.522 Non-pressure chronic ulcer of other part of left foot with fat layer exposed; L97.512 Non-pressure chronic ulcer of other part of right foot with fat layer exposed; M20.12 Hallux valgus (acquired), left foot; M21.622 Bunionette of left foot; E11.42 Type 2 diabetes mellitus with diabetic polyneuropathy; Z79.4 Long term (current) use of insulin; Z79.899 Other long term (current) drug therapy; R60.9 Edema, unspecified | CPT/HCPCS: 11042; A6402 ==

== ENCOUNTER 2018-12-19 12:30 | Outpatient (CLI) | payer MEDICARE | END 2018-12-19 23:59 | disposition home health service (06) | LOC: WOU 12:30 | PROVIDERS: ATTEND Podiatrist Foot & Ankle Surgery | DX: E11.621 Type 2 diabetes mellitus with foot ulcer (principal); L97.422 Non-pressure chronic ulcer of left heel and midfoot with fat layer exposed; L97.512 Non-pressure chronic ulcer of other part of right foot with fat layer exposed; Z79.4 Long term (current) use of insulin; E11.42 Type 2 diabetes mellitus with diabetic polyneuropathy; Z89.421 Acquired absence of other right toe(s); M20.10 Hallux valgus (acquired), unspecified foot | CPT/HCPCS: 11042; A6402 ==

== ENCOUNTER 2018-12-30 13:00 | Outpatient (CLI) | payer MEDICARE | END 2018-12-30 23:59 | disposition home health service (06) | LOC: WOU 13:00 | PROVIDERS: ATTEND Podiatrist Foot & Ankle Surgery | DX: E11.621 Type 2 diabetes mellitus with foot ulcer (principal); L97.522 Non-pressure chronic ulcer of other part of left foot with fat layer exposed; L97.512 Non-pressure chronic ulcer of other part of right foot with fat layer exposed; E11.42 Type 2 diabetes mellitus with diabetic polyneuropathy; E11.65 Type 2 diabetes mellitus with hyperglycemia; Z79.4 Long term (current) use of insulin; Z79.899 Other long term (current) drug therapy | CPT/HCPCS: 11042; A6402 ==

== ENCOUNTER 2019-01-06 13:17 | Outpatient (CLI) | payer MEDICARE | END 2019-01-06 23:59 | disposition home health service (06) | LOC: WOU 13:17 | PROVIDERS: ATTEND Podiatrist Foot & Ankle Surgery | DX: E11.621 Type 2 diabetes mellitus with foot ulcer (principal); E11.42 Type 2 diabetes mellitus with diabetic polyneuropathy; L97.525 Non-pressure chronic ulcer of other part of left foot with muscle involvement without evidence of necrosis; L97.512 Non-pressure chronic ulcer of other part of right foot with fat layer exposed; E11.65 Type 2 diabetes mellitus with hyperglycemia; Z79.4 Long term (current) use of insulin; E66.9 Obesity, unspecified; Z68.34 Body mass index [BMI] 34.0-34.9, adult; Z71.3 Dietary counseling and surveillance | CPT/HCPCS: 11042; 13160; A6402 ==

== ENCOUNTER 2019-01-09 11:50 | Outpatient (CLI) | payer MEDICARE | END 2019-01-09 23:59 | disposition home health service (06) | LOC: WOU 11:50 | PROVIDERS: ATTEND Podiatrist Foot & Ankle Surgery | DX: E11.621 Type 2 diabetes mellitus with foot ulcer (principal); L97.523 Non-pressure chronic ulcer of other part of left foot with necrosis of muscle; L97.512 Non-pressure chronic ulcer of other part of right foot with fat layer exposed; E11.65 Type 2 diabetes mellitus with hyperglycemia; E11.42 Type 2 diabetes mellitus with diabetic polyneuropathy; L03.116 Cellulitis of left lower limb; Z79.4 Long term (current) use of insulin; Z79.899 Other long term (current) drug therapy | CPT/HCPCS: 11043; 87070; 87077; A6402; A6407 ==

== ENCOUNTER 2019-01-13 13:40 | Outpatient (CLI) | payer MEDICARE | END 2019-01-13 23:59 | disposition home health service (06) | LOC: WOU 13:40 | PROVIDERS: ATTEND Podiatrist Foot & Ankle Surgery | DX: E11.621 Type 2 diabetes mellitus with foot ulcer (principal); L97.526 Non-pressure chronic ulcer of other part of left foot with bone involvement without evidence of necrosis; L97.512 Non-pressure chronic ulcer of other part of right foot with fat layer exposed; E11.42 Type 2 diabetes mellitus with diabetic polyneuropathy; E11.65 Type 2 diabetes mellitus with hyperglycemia; Z79.4 Long term (current) use of insulin; R60.9 Edema, unspecified | CPT/HCPCS: 11043; A6402 ==

== ENCOUNTER 2019-01-16 12:05 | Outpatient (CLI) | payer MEDICARE | END 2019-01-16 23:59 | disposition home health service (06) | LOC: WOU 12:05 | PROVIDERS: ATTEND Podiatrist Foot & Ankle Surgery | DX: E11.621 Type 2 diabetes mellitus with foot ulcer (principal); L97.526 Non-pressure chronic ulcer of other part of left foot with bone involvement without evidence of necrosis; L97.512 Non-pressure chronic ulcer of other part of right foot with fat layer exposed; E11.42 Type 2 diabetes mellitus with diabetic polyneuropathy; L03.116 Cellulitis of left lower limb; R60.0 Localized edema; Z79.4 Long term (current) use of insulin; M20.11 Hallux valgus (acquired), right foot; Z89.421 Acquired absence of other right toe(s); M20.40 Other hammer toe(s) (acquired), unspecified foot | CPT/HCPCS: 11043; A6402 ==

== ENCOUNTER 2019-01-30 13:00 | Outpatient (CLI) | payer MEDICARE | END 2019-01-30 23:59 | disposition home or self-care (01) | LOC: WOU 13:00 | PROVIDERS: ATTEND Podiatrist Foot & Ankle Surgery | DX: E11.621 Type 2 diabetes mellitus with foot ulcer (principal); L97.423 Non-pressure chronic ulcer of left heel and midfoot with necrosis of muscle; E11.42 Type 2 diabetes mellitus with diabetic polyneuropathy; R60.0 Localized edema; L03.116 Cellulitis of left lower limb; Z91.19 Patient's noncompliance with other medical treatment and regimen; Z89.421 Acquired absence of other right toe(s); Z79.4 Long term (current) use of insulin | CPT/HCPCS: 11043; 87070; A6402 ==

== ENCOUNTER 2019-02-04 15:28 | Outpatient (CLI) | payer MEDICARE ==
[2019-02-04 17:42] LABS: BASOPHILS # (AUTO) 0.1 /CMM (0.0-0.2); BASOPHILS % (AUTO) 1.1 % (0.0-2.0); EOSINOPHILS % (AUTO) 2.6 % (0.0-6.0); HEMATOCRIT 44 % (33-45); HEMOGLOBIN 14.5 g/dL (11.5-14.8); LYMPHOCYTES # (AUTO) 1.5 /CMM (0.8-4.8); LYMPHOCYTES % (AUTO) 30.4 % (20.0-44.0); MEAN CORPUSCULAR HGB CONC 33 g/dl (31.0-36.0); MEAN CORPUSCULAR VOLUME 90 fL (82-100); MONOCYTES # (AUTO) 0.4 /CMM (0.1-1.30); MONOCYTES % (AUTO) 7.7 % (2.0-12.0); NEUTROPHILS # (AUTO) 2.8 /CMM (1.8-8.9); NEUTROPHILS % (AUTO) 58.2 % (43.0-81.0); PLATELET COUNT (AUTO) 287 /CMM (150-450); RED BLOOD CELL COUNT(AUTO) 4.91 MIL/uL (4.0-5.2); WHITE BLOOD COUNT (AUTO) 4.8 K/uL (4.3-11.0)
== END 2019-02-04 23:59 | disposition home or self-care (01) ==
LOC: LAB 15:28
PROVIDERS: ATTEND Podiatrist Foot & Ankle Surgery
DX: S93.102A Unspecified subluxation of left toe(s), initial encounter (principal); L97.529 Non-pressure chronic ulcer of other part of left foot with unspecified severity; M19.172 Post-traumatic osteoarthritis, left ankle and foot; Z89.422 Acquired absence of other left toe(s); X58.XXXA Exposure to other specified factors, initial encounter; Y93.89 Activity, other specified; Y92.89 Other specified places as the place of occurrence of the external cause; Y99.8 Other external cause status
CPT/HCPCS: 36415; 73630-TC; 85025-TC; 85652-TC; 86140-TC

== ENCOUNTER 2019-02-17 13:00 | Outpatient (CLI) | payer MEDICARE | END 2019-02-17 23:59 | disposition home or self-care (01) | LOC: WOU 13:00 | PROVIDERS: ATTEND Podiatrist Foot & Ankle Surgery | DX: E11.621 Type 2 diabetes mellitus with foot ulcer (principal); L97.526 Non-pressure chronic ulcer of other part of left foot with bone involvement without evidence of necrosis; E11.42 Type 2 diabetes mellitus with diabetic polyneuropathy; Z79.84 Long term (current) use of oral hypoglycemic drugs; Z79.899 Other long term (current) drug therapy; R60.0 Localized edema | CPT/HCPCS: 11043; A6402; 11042 ==

== ENCOUNTER 2019-03-03 13:04 | Outpatient (CLI) | payer MEDICARE | END 2019-03-03 23:59 | disposition home or self-care (01) | LOC: WOU 13:04 | PROVIDERS: ATTEND Podiatrist Foot & Ankle Surgery | DX: E11.621 Type 2 diabetes mellitus with foot ulcer (principal); L97.526 Non-pressure chronic ulcer of other part of left foot with bone involvement without evidence of necrosis; E11.42 Type 2 diabetes mellitus with diabetic polyneuropathy; Z79.4 Long term (current) use of insulin; Z79.899 Other long term (current) drug therapy | CPT/HCPCS: 11043; A6402 ==

== ENCOUNTER 2019-03-10 13:00 | Outpatient (CLI) | payer MEDICARE | END 2019-03-10 23:59 | disposition home health service (06) | LOC: WOU 13:00 | PROVIDERS: ATTEND Podiatrist Foot & Ankle Surgery | DX: E11.621 Type 2 diabetes mellitus with foot ulcer (principal); L97.522 Non-pressure chronic ulcer of other part of left foot with fat layer exposed; E11.42 Type 2 diabetes mellitus with diabetic polyneuropathy; Z79.4 Long term (current) use of insulin; Z79.899 Other long term (current) drug therapy | CPT/HCPCS: 11043; A6402 ==

== ENCOUNTER 2019-03-18 13:05 | Outpatient (CLI) | payer MEDICARE | END 2019-03-18 23:59 | disposition home health service (06) | LOC: WOU 13:05 | PROVIDERS: ATTEND Podiatrist Foot & Ankle Surgery | DX: E11.621 Type 2 diabetes mellitus with foot ulcer (principal); L97.525 Non-pressure chronic ulcer of other part of left foot with muscle involvement without evidence of necrosis; E11.42 Type 2 diabetes mellitus with diabetic polyneuropathy; M20.40 Other hammer toe(s) (acquired), unspecified foot; Z89.421 Acquired absence of other right toe(s); Z79.4 Long term (current) use of insulin; Z79.899 Other long term (current) drug therapy | CPT/HCPCS: 11042; A6402 ==

== ENCOUNTER 2019-04-01 14:20 | Outpatient (CLI) | payer MEDICARE | END 2019-04-01 23:59 | disposition home health service (06) | LOC: WOU 14:20 | PROVIDERS: ATTEND Podiatrist Foot & Ankle Surgery | DX: E11.621 Type 2 diabetes mellitus with foot ulcer (principal); E11.42 Type 2 diabetes mellitus with diabetic polyneuropathy; L97.423 Non-pressure chronic ulcer of left heel and midfoot with necrosis of muscle; Z79.4 Long term (current) use of insulin; E66.9 Obesity, unspecified; Z68.34 Body mass index [BMI] 34.0-34.9, adult; R60.0 Localized edema; Z89.421 Acquired absence of other right toe(s); M20.10 Hallux valgus (acquired), unspecified foot | CPT/HCPCS: 11043; A6402 ==

== ENCOUNTER 2019-04-08 13:40 | Outpatient (CLI) | payer MEDICARE | END 2019-04-08 23:59 | disposition home health service (06) | LOC: WOU 13:40 | PROVIDERS: ATTEND Podiatrist Foot & Ankle Surgery | DX: E11.621 Type 2 diabetes mellitus with foot ulcer (principal); L97.423 Non-pressure chronic ulcer of left heel and midfoot with necrosis of muscle; E11.42 Type 2 diabetes mellitus with diabetic polyneuropathy; M20.11 Hallux valgus (acquired), right foot; Z91.19 Patient's noncompliance with other medical treatment and regimen; M20.40 Other hammer toe(s) (acquired), unspecified foot; Z79.4 Long term (current) use of insulin; Z79.899 Other long term (current) drug therapy | CPT/HCPCS: 11043; A6402 ==

== ENCOUNTER 2019-04-22 13:55 | Outpatient (CLI) | payer MEDICARE | END 2019-04-22 23:59 | disposition home health service (06) | LOC: WOU 13:55 | PROVIDERS: ATTEND Podiatrist Foot & Ankle Surgery | DX: E11.621 Type 2 diabetes mellitus with foot ulcer (principal); L97.423 Non-pressure chronic ulcer of left heel and midfoot with necrosis of muscle; E11.42 Type 2 diabetes mellitus with diabetic polyneuropathy; M20.12 Hallux valgus (acquired), left foot; M20.41 Other hammer toe(s) (acquired), right foot; Z79.4 Long term (current) use of insulin; Z79.899 Other long term (current) drug therapy | CPT/HCPCS: 11043; A6402 ==

== ENCOUNTER 2019-04-29 13:45 | Outpatient (CLI) | payer MEDICARE | END 2019-04-29 23:59 | disposition home health service (06) | LOC: WOU 13:45 | PROVIDERS: ATTEND Podiatrist Foot & Ankle Surgery | DX: E11.621 Type 2 diabetes mellitus with foot ulcer (principal); L97.422 Non-pressure chronic ulcer of left heel and midfoot with fat layer exposed; M20.12 Hallux valgus (acquired), left foot; E11.42 Type 2 diabetes mellitus with diabetic polyneuropathy; R60.0 Localized edema; Z79.4 Long term (current) use of insulin; Z79.899 Other long term (current) drug therapy | CPT/HCPCS: 11042; A6402 ==

== ENCOUNTER 2019-05-06 13:35 | Outpatient (CLI) | payer MEDICARE | END 2019-05-06 23:59 | disposition home health service (06) | LOC: WOU 13:35 | PROVIDERS: ATTEND Podiatrist Foot & Ankle Surgery | DX: E11.621 Type 2 diabetes mellitus with foot ulcer (principal); L97.422 Non-pressure chronic ulcer of left heel and midfoot with fat layer exposed; I89.0 Lymphedema, not elsewhere classified; R60.0 Localized edema; M20.12 Hallux valgus (acquired), left foot; M20.42 Other hammer toe(s) (acquired), left foot; E11.51 Type 2 diabetes mellitus with diabetic peripheral angiopathy without gangrene; L84 Corns and callosities; E11.42 Type 2 diabetes mellitus with diabetic polyneuropathy; Z79.4 Long term (current) use of insulin | CPT/HCPCS: 11043; A6402 ==

== ENCOUNTER 2019-05-14 11:05 | Outpatient (CLI) | payer MEDICARE | END 2019-05-14 23:59 | disposition home or self-care (01) | LOC: WOU 11:05 | PROVIDERS: ATTEND Podiatrist Foot & Ankle Surgery | DX: I89.0 Lymphedema, not elsewhere classified (principal); E11.621 Type 2 diabetes mellitus with foot ulcer; L97.509 Non-pressure chronic ulcer of other part of unspecified foot with unspecified severity; E11.51 Type 2 diabetes mellitus with diabetic peripheral angiopathy without gangrene ==

== ENCOUNTER 2019-05-20 13:30 | Outpatient (CLI) | payer MEDICARE | END 2019-05-20 23:59 | disposition home health service (06) | LOC: WOU 13:30 | PROVIDERS: ATTEND Podiatrist Foot & Ankle Surgery | DX: E11.621 Type 2 diabetes mellitus with foot ulcer (principal); L97.423 Non-pressure chronic ulcer of left heel and midfoot with necrosis of muscle; E11.42 Type 2 diabetes mellitus with diabetic polyneuropathy; R60.0 Localized edema; Z91.19 Patient's noncompliance with other medical treatment and regimen | CPT/HCPCS: 11043 ==

== ENCOUNTER 2019-05-27 13:30 | Outpatient (CLI) | payer MEDICARE | END 2019-05-27 23:59 | disposition home health service (06) | LOC: WOU 13:30 | PROVIDERS: ATTEND Podiatrist Foot & Ankle Surgery | DX: E11.621 Type 2 diabetes mellitus with foot ulcer (principal); L97.423 Non-pressure chronic ulcer of left heel and midfoot with necrosis of muscle; E11.42 Type 2 diabetes mellitus with diabetic polyneuropathy; M20.10 Hallux valgus (acquired), unspecified foot; M20.40 Other hammer toe(s) (acquired), unspecified foot; Z79.4 Long term (current) use of insulin | CPT/HCPCS: 11043 ==

== ENCOUNTER 2019-06-03 13:40 | Outpatient (CLI) | payer MEDICARE | END 2019-06-03 23:59 | disposition home health service (06) | LOC: WOU 13:40 | PROVIDERS: ATTEND Podiatrist Foot & Ankle Surgery | DX: E11.621 Type 2 diabetes mellitus with foot ulcer (principal); L97.422 Non-pressure chronic ulcer of left heel and midfoot with fat layer exposed; E11.42 Type 2 diabetes mellitus with diabetic polyneuropathy; M20.12 Hallux valgus (acquired), left foot; Z89.422 Acquired absence of other left toe(s); R60.0 Localized edema; Z91.19 Patient's noncompliance with other medical treatment and regimen; Z79.4 Long term (current) use of insulin | CPT/HCPCS: 11042 ==

== ENCOUNTER 2019-06-10 13:30 | Outpatient (CLI) | payer MEDICARE | END 2019-06-10 23:59 | disposition home health service (06) | LOC: WOU 13:30 | PROVIDERS: ATTEND Podiatrist Foot & Ankle Surgery | DX: E11.621 Type 2 diabetes mellitus with foot ulcer (principal); L97.422 Non-pressure chronic ulcer of left heel and midfoot with fat layer exposed; E11.42 Type 2 diabetes mellitus with diabetic polyneuropathy; M20.42 Other hammer toe(s) (acquired), left foot; Z79.4 Long term (current) use of insulin | CPT/HCPCS: 11042 ==

== ENCOUNTER 2019-06-12 12:15 | Outpatient (CLI) | payer MEDICARE | END 2019-06-12 23:59 | disposition home or self-care (01) | LOC: CARD 12:15 | PROVIDERS: ATTEND Podiatrist Foot & Ankle Surgery | DX: E11.621 Type 2 diabetes mellitus with foot ulcer (principal); L97.509 Non-pressure chronic ulcer of other part of unspecified foot with unspecified severity; R60.0 Localized edema | CPT/HCPCS: 93970-TC ==

== ENCOUNTER 2019-06-17 13:35 | Outpatient (CLI) | payer MEDICARE | END 2019-06-17 23:59 | disposition home health service (06) | LOC: WOU 13:35 | PROVIDERS: ATTEND Podiatrist Foot & Ankle Surgery | DX: E11.621 Type 2 diabetes mellitus with foot ulcer (principal); L97.422 Non-pressure chronic ulcer of left heel and midfoot with fat layer exposed; E11.42 Type 2 diabetes mellitus with diabetic polyneuropathy; Z89.422 Acquired absence of other left toe(s); E66.9 Obesity, unspecified; Z68.34 Body mass index [BMI] 34.0-34.9, adult; Z79.4 Long term (current) use of insulin | CPT/HCPCS: 11042 ==

== ENCOUNTER 2019-06-24 13:30 | Outpatient (CLI) | payer MEDICARE | END 2019-06-24 23:59 | disposition home health service (06) | LOC: WOU 13:30 | PROVIDERS: ATTEND Podiatrist Foot & Ankle Surgery | DX: E11.621 Type 2 diabetes mellitus with foot ulcer (principal); M20.42 Other hammer toe(s) (acquired), left foot; E11.42 Type 2 diabetes mellitus with diabetic polyneuropathy; L97.426 Non-pressure chronic ulcer of left heel and midfoot with bone involvement without evidence of necrosis; M20.10 Hallux valgus (acquired), unspecified foot; Z79.4 Long term (current) use of insulin | CPT/HCPCS: 11043; A6407 ==

== ENCOUNTER 2019-07-01 13:35 | Outpatient (CLI) | payer MEDICARE | END 2019-07-01 23:59 | disposition home health service (06) | LOC: WOU 13:35 | PROVIDERS: ATTEND Podiatrist Foot & Ankle Surgery | DX: E11.621 Type 2 diabetes mellitus with foot ulcer (principal); L97.426 Non-pressure chronic ulcer of left heel and midfoot with bone involvement without evidence of necrosis; E11.42 Type 2 diabetes mellitus with diabetic polyneuropathy; Z79.4 Long term (current) use of insulin | CPT/HCPCS: 11043; A6407 ==

== ENCOUNTER 2019-07-08 13:30 | Outpatient (CLI) | payer MEDICARE | END 2019-07-08 23:59 | disposition home health service (06) | LOC: WOU 13:30 | PROVIDERS: ATTEND Podiatrist Foot & Ankle Surgery | DX: E11.621 Type 2 diabetes mellitus with foot ulcer (principal); L97.523 Non-pressure chronic ulcer of other part of left foot with necrosis of muscle; E11.42 Type 2 diabetes mellitus with diabetic polyneuropathy; Z89.421 Acquired absence of other right toe(s); I10 Essential (primary) hypertension; E66.9 Obesity, unspecified; Z68.34 Body mass index [BMI] 34.0-34.9, adult; Z79.84 Long term (current) use of oral hypoglycemic drugs | CPT/HCPCS: 11043 ==

== ENCOUNTER 2019-07-09 15:01 | Outpatient (CLI) | payer MEDICARE | END 2019-07-09 23:59 | disposition home or self-care (01) | LOC: RAD 15:01 | PROVIDERS: ATTEND Podiatrist Foot & Ankle Surgery | DX: Z01.818 Encounter for other preprocedural examination (principal); E11.621 Type 2 diabetes mellitus with foot ulcer; R94.31 Abnormal electrocardiogram [ECG] [EKG] | CPT/HCPCS: 71045-TC ==

== ENCOUNTER 2019-07-10 13:31 | Outpatient (CLI) | payer MEDICARE ==
[2019-07-10 14:15] LABS: BASOPHILS # (AUTO) 0.1 /CMM (0.0-0.2); BASOPHILS % (AUTO) 0.8 % (0.0-2.0); EOSINOPHILS % (AUTO) 1.3 % (0.0-6.0); HEMATOCRIT 44 % (33-45); HEMOGLOBIN 14.2 g/dL (11.5-14.8); LYMPHOCYTES # (AUTO) 1.3 /CMM (0.8-4.8); LYMPHOCYTES % (AUTO) 19.5 % (20.0-44.0); MEAN CORPUSCULAR HGB CONC 33 g/dl (31.0-36.0); MEAN CORPUSCULAR VOLUME 90 fL (82-100); MONOCYTES # (AUTO) 0.5 /CMM (0.1-1.30); MONOCYTES % (AUTO) 7.5 % (2.0-12.0); NEUTROPHILS # (AUTO) 4.8 /CMM (1.8-8.9); NEUTROPHILS % (AUTO) 70.9 % (43.0-81.0); PLATELET COUNT (AUTO) 274 /CMM (150-450); RED BLOOD CELL COUNT(AUTO) 4.87 MIL/uL (4.0-5.2); WHITE BLOOD COUNT (AUTO) 6.8 K/uL (4.3-11.0)
[2019-07-10 14:23] LABS: CALCIUM, SERUM 8.7 mg/dL (8.5-10.1); CREATININE 0.8 mg/dL (0.6-1.3); POTASSIUM 4.4 mmol/L (3.5-5.1)
== END 2019-07-10 23:59 | disposition home or self-care (01) ==
LOC: LAB 13:31
PROVIDERS: ATTEND Podiatrist Foot & Ankle Surgery
DX: Z01.818 Encounter for other preprocedural examination (principal); E11.621 Type 2 diabetes mellitus with foot ulcer; E11.40 Type 2 diabetes mellitus with diabetic neuropathy, unspecified
CPT/HCPCS: 36415; 80048-TC; 85025-TC; 85730-TC

== ENCOUNTER 2019-07-15 13:30 | Outpatient (CLI) | payer MEDICARE | END 2019-07-15 23:59 | disposition home health service (06) | LOC: WOU 13:30 | PROVIDERS: ATTEND Podiatrist Foot & Ankle Surgery | DX: E11.621 Type 2 diabetes mellitus with foot ulcer (principal); E11.42 Type 2 diabetes mellitus with diabetic polyneuropathy; L97.522 Non-pressure chronic ulcer of other part of left foot with fat layer exposed; Z91.19 Patient's noncompliance with other medical treatment and regimen; Z79.84 Long term (current) use of oral hypoglycemic drugs | CPT/HCPCS: 11043 ==

== ENCOUNTER 2019-07-17 05:23 | Day surgery (SDC) | payer MEDICARE ==
[2019-07-17] MEDS ORDERED: MIDAZOLAM HCL 2 MG/2ML VIAL ONE (06:51)
[2019-07-17] MEDS ORDERED: FENTANYL PF 100MCG/2ML AMPUL ONE (06:52)
[2019-07-17] MEDS ORDERED: FAMOTIDINE/PF INJ 20 MG/2 ML VIAL IV ONE (06:52)
[2019-07-17] MEDS ORDERED: BUPIVACAINE MPF 0.5% W/EPI INJ 30 ML VIAL ONE (07:53)
[2019-07-17] MEDS ORDERED: LIDOCAINE HCL/MPF 1% 30 ML VIAL IJ ONE (07:53)
== END 2019-07-17 10:30 | disposition home or self-care (01) ==
LOC: DS 05:23
PROVIDERS: ATTEND Podiatrist Foot & Ankle Surgery
DX: E11.621 Type 2 diabetes mellitus with foot ulcer (principal); L97.524 Non-pressure chronic ulcer of other part of left foot with necrosis of bone; M89.8X7 Other specified disorders of bone, ankle and foot; M79.89 Other specified soft tissue disorders; E11.42 Type 2 diabetes mellitus with diabetic polyneuropathy; E03.9 Hypothyroidism, unspecified; E11.69 Type 2 diabetes mellitus with other specified complication; M86.9 Osteomyelitis, unspecified; Z79.899 Other long term (current) drug therapy; Z79.84 Long term (current) use of oral hypoglycemic drugs; E55.9 Vitamin D deficiency, unspecified; G47.00 Insomnia, unspecified; Z89.422 Acquired absence of other left toe(s); Z98.890 Other specified postprocedural states
CPT/HCPCS: 14040; 28122; 82962 ×2; 87070; 87075; 87077; 87186 ×2; 88305; 88311; 88312; J0690; J2250; J2405; J2704; J2765; J3010; J3490 ×3; J7030 ×2; J7050

== ENCOUNTER 2019-07-22 13:50 | Outpatient (CLI) | payer MEDICARE | END 2019-07-22 23:59 | disposition home or self-care (01) | LOC: WOU 13:50 | PROVIDERS: ATTEND Podiatrist Foot & Ankle Surgery | DX: Z48.89 Encounter for other specified surgical aftercare (principal); E11.42 Type 2 diabetes mellitus with diabetic polyneuropathy; E11.69 Type 2 diabetes mellitus with other specified complication; M86.9 Osteomyelitis, unspecified; Z91.19 Patient's noncompliance with other medical treatment and regimen; Z79.84 Long term (current) use of oral hypoglycemic drugs | CPT/HCPCS: G0463 ==

== ENCOUNTER 2019-07-29 13:35 | Outpatient (CLI) | payer MEDICARE | END 2019-07-29 23:59 | disposition home or self-care (01) | LOC: WOU 13:35 | PROVIDERS: ATTEND Podiatrist Foot & Ankle Surgery | DX: T81.31XA Disruption of external operation (surgical) wound, not elsewhere classified, initial encounter (principal); E11.621 Type 2 diabetes mellitus with foot ulcer; L97.522 Non-pressure chronic ulcer of other part of left foot with fat layer exposed; E11.42 Type 2 diabetes mellitus with diabetic polyneuropathy; Z91.19 Patient's noncompliance with other medical treatment and regimen; Z79.84 Long term (current) use of oral hypoglycemic drugs | CPT/HCPCS: 11042 ==

== ENCOUNTER 2019-08-05 13:35 | Outpatient (CLI) | payer MEDICARE | END 2019-08-05 23:59 | disposition home health service (06) | LOC: WOU 13:35 | PROVIDERS: ATTEND Podiatrist Foot & Ankle Surgery | DX: T81.31XA Disruption of external operation (surgical) wound, not elsewhere classified, initial encounter (principal); E11.621 Type 2 diabetes mellitus with foot ulcer; L97.522 Non-pressure chronic ulcer of other part of left foot with fat layer exposed; E11.42 Type 2 diabetes mellitus with diabetic polyneuropathy; Z91.19 Patient's noncompliance with other medical treatment and regimen; E66.9 Obesity, unspecified; Z68.34 Body mass index [BMI] 34.0-34.9, adult; I10 Essential (primary) hypertension; E03.9 Hypothyroidism, unspecified; Z79.84 Long term (current) use of oral hypoglycemic drugs; Z79.899 Other long term (current) drug therapy | CPT/HCPCS: 11042 ==

== ENCOUNTER 2019-08-12 13:35 | Outpatient (CLI) | payer MEDICARE | END 2019-08-12 23:59 | disposition home or self-care (01) | LOC: WOU 13:35 | PROVIDERS: ATTEND Podiatrist Foot & Ankle Surgery | DX: T81.31XA Disruption of external operation (surgical) wound, not elsewhere classified, initial encounter (principal); E11.42 Type 2 diabetes mellitus with diabetic polyneuropathy; Z91.19 Patient's noncompliance with other medical treatment and regimen; E11.69 Type 2 diabetes mellitus with other specified complication; M86.8X7 Other osteomyelitis, ankle and foot; L97.422 Non-pressure chronic ulcer of left heel and midfoot with fat layer exposed; Z79.899 Other long term (current) drug therapy; Z79.84 Long term (current) use of oral hypoglycemic drugs | CPT/HCPCS: 11042 ==

== ENCOUNTER 2019-08-19 13:37 | Outpatient (CLI) | payer MEDICARE | END 2019-08-19 23:59 | disposition home health service (06) | LOC: WOU 13:37 | PROVIDERS: ATTEND Podiatrist Foot & Ankle Surgery | DX: T81.31XA Disruption of external operation (surgical) wound, not elsewhere classified, initial encounter (principal); Z91.19 Patient's noncompliance with other medical treatment and regimen; E11.621 Type 2 diabetes mellitus with foot ulcer; L97.522 Non-pressure chronic ulcer of other part of left foot with fat layer exposed; E11.42 Type 2 diabetes mellitus with diabetic polyneuropathy | CPT/HCPCS: 11042 ==

== ENCOUNTER 2019-08-26 13:36 | Outpatient (CLI) | payer MEDICARE | END 2019-08-26 23:59 | disposition home health service (06) | LOC: WOU 13:36 | PROVIDERS: ATTEND Podiatrist Foot & Ankle Surgery | DX: T81.31XA Disruption of external operation (surgical) wound, not elsewhere classified, initial encounter (principal); E11.42 Type 2 diabetes mellitus with diabetic polyneuropathy; E11.621 Type 2 diabetes mellitus with foot ulcer; L97.522 Non-pressure chronic ulcer of other part of left foot with fat layer exposed; Z91.19 Patient's noncompliance with other medical treatment and regimen; Z79.84 Long term (current) use of oral hypoglycemic drugs | CPT/HCPCS: 11042 ==

== ENCOUNTER 2019-09-02 13:22 | Outpatient (CLI) | payer MEDICARE | END 2019-09-02 23:59 | disposition home health service (06) | LOC: WOU 13:22 | PROVIDERS: ATTEND Podiatrist Foot & Ankle Surgery | DX: T81.31XA Disruption of external operation (surgical) wound, not elsewhere classified, initial encounter (principal); Z91.19 Patient's noncompliance with other medical treatment and regimen; E11.42 Type 2 diabetes mellitus with diabetic polyneuropathy; L84 Corns and callosities; M20.41 Other hammer toe(s) (acquired), right foot; Z79.84 Long term (current) use of oral hypoglycemic drugs | CPT/HCPCS: 11042 ==

== ENCOUNTER → 2019-09-16 | Outpatient (CLI) | payer MEDICARE | END | disposition home health service (06) | LOC: WOU 13:30 | PROVIDERS: ATTEND Podiatrist Foot & Ankle Surgery | DX: T81.31XA Disruption of external operation (surgical) wound, not elsewhere classified, initial encounter (principal); E11.42 Type 2 diabetes mellitus with diabetic polyneuropathy; Z91.19 Patient's noncompliance with other medical treatment and regimen; E11.621 Type 2 diabetes mellitus with foot ulcer; L97.522 Non-pressure chronic ulcer of other part of left foot with fat layer exposed; Z89.421 Acquired absence of other right toe(s); Z79.84 Long term (current) use of oral hypoglycemic drugs | CPT/HCPCS: 11042 ==

== ENCOUNTER 2019-09-23 13:29 | Outpatient (CLI) | payer MEDICARE | END 2019-09-23 23:59 | disposition home health service (06) | LOC: WOU 13:29 | PROVIDERS: ATTEND Podiatrist Foot & Ankle Surgery | DX: T81.31XA Disruption of external operation (surgical) wound, not elsewhere classified, initial encounter (principal); E11.621 Type 2 diabetes mellitus with foot ulcer; L97.522 Non-pressure chronic ulcer of other part of left foot with fat layer exposed; E11.42 Type 2 diabetes mellitus with diabetic polyneuropathy; L84 Corns and callosities; Z91.19 Patient's noncompliance with other medical treatment and regimen; Z89.421 Acquired absence of other right toe(s); Z79.84 Long term (current) use of oral hypoglycemic drugs | CPT/HCPCS: 11042 ==

== ENCOUNTER 2019-09-30 13:25 | Outpatient (CLI) | payer MEDICARE | END 2019-09-30 23:59 | disposition home health service (06) | LOC: WOU 13:25 | PROVIDERS: ATTEND Podiatrist Foot & Ankle Surgery | DX: T81.31XD Disruption of external operation (surgical) wound, not elsewhere classified, subsequent encounter (principal); E11.42 Type 2 diabetes mellitus with diabetic polyneuropathy; Z91.19 Patient's noncompliance with other medical treatment and regimen; E11.69 Type 2 diabetes mellitus with other specified complication; M86.9 Osteomyelitis, unspecified; L84 Corns and callosities; M20.41 Other hammer toe(s) (acquired), right foot | CPT/HCPCS: G0463 ==

== ENCOUNTER 2019-10-28 13:35 | Outpatient (CLI) | payer MEDICARE | END 2019-10-28 23:59 | disposition home health service (06) | LOC: WOU 13:35 | PROVIDERS: ATTEND Podiatrist Foot & Ankle Surgery | DX: L84 Corns and callosities (principal); B35.1 Tinea unguium; E11.42 Type 2 diabetes mellitus with diabetic polyneuropathy; M20.42 Other hammer toe(s) (acquired), left foot; M20.41 Other hammer toe(s) (acquired), right foot; Z89.421 Acquired absence of other right toe(s); E11.621 Type 2 diabetes mellitus with foot ulcer; L97.512 Non-pressure chronic ulcer of other part of right foot with fat layer exposed; Z79.84 Long term (current) use of oral hypoglycemic drugs | CPT/HCPCS: G0463 ==

== ENCOUNTER 2019-11-11 13:35 | Outpatient (CLI) | payer MEDICARE | END 2019-11-11 23:59 | disposition home health service (06) | LOC: WOU 13:35 | PROVIDERS: ATTEND Podiatrist Foot & Ankle Surgery | DX: L84 Corns and callosities (principal); E11.42 Type 2 diabetes mellitus with diabetic polyneuropathy; Z89.421 Acquired absence of other right toe(s); Z79.84 Long term (current) use of oral hypoglycemic drugs; B35.1 Tinea unguium; Z86.31 Personal history of diabetic foot ulcer; M20.12 Hallux valgus (acquired), left foot; M20.11 Hallux valgus (acquired), right foot; M20.40 Other hammer toe(s) (acquired), unspecified foot; E11.65 Type 2 diabetes mellitus with hyperglycemia | CPT/HCPCS: G0463 ==

== ENCOUNTER 2019-11-25 13:30 | Outpatient (CLI) | payer MEDICARE | END 2019-11-25 23:59 | disposition home health service (06) | LOC: WOU 13:30 | PROVIDERS: ATTEND Podiatrist Foot & Ankle Surgery | DX: E11.621 Type 2 diabetes mellitus with foot ulcer (principal); L97.412 Non-pressure chronic ulcer of right heel and midfoot with fat layer exposed; E11.42 Type 2 diabetes mellitus with diabetic polyneuropathy; M20.42 Other hammer toe(s) (acquired), left foot; M20.41 Other hammer toe(s) (acquired), right foot; L84 Corns and callosities; M20.10 Hallux valgus (acquired), unspecified foot; Z79.84 Long term (current) use of oral hypoglycemic drugs | CPT/HCPCS: 11042 ==

== ENCOUNTER 2019-12-02 13:27 | Outpatient (CLI) | payer MEDICARE | END 2019-12-02 23:59 | disposition home health service (06) | LOC: WOU 13:27 | PROVIDERS: ATTEND Podiatrist Foot & Ankle Surgery | DX: Z09 Encounter for follow-up examination after completed treatment for conditions other than malignant neoplasm (principal); E11.42 Type 2 diabetes mellitus with diabetic polyneuropathy; Z86.31 Personal history of diabetic foot ulcer; L84 Corns and callosities; M20.12 Hallux valgus (acquired), left foot; Z79.84 Long term (current) use of oral hypoglycemic drugs | CPT/HCPCS: G0463 ==

== ENCOUNTER 2019-12-03 14:18 | Emergency (ER) | payer MEDICARE ==
[~2019-12-03] VITALS: Ht 170.2 cm; Wt 79.4 kg
--- NOTE | 2019-12-03 14:30 | NUR ---
BIB RA C/O R ARM/SHOULDER PAIN S/P GLF. PATIENT A/OX3, BREATHING EVEN AND UNLABORED, NO SOB NOTED, KEPT COMFORTABLE, PATIENT C/O SEVERE RIGHT SHOULDER PAIN. NEEDS ATTENDED.
[2019-12-03] MEDS ORDERED: KETOROLAC TROMETHAMINE 15 MG/ML VIAL ONE (14:49)
[2019-12-03] MEDS ORDERED: KETOROLAC TROMETHAMINE INJ 30 MG/ML VIAL IV ONE (15:00)
[2019-12-03] MEDS ORDERED: IV NS 0.9% 500 ML BAG IV ONE (15:00)
--- NOTE | 2019-12-03 15:10 | NUR ---
TECHNICAL PROJECT MANAGER AT BEDSIDE FOR SHOULDER XRAY.
[2019-12-03 15:12] LABS: BASOPHILS % (AUTO) 0.7 % (0.0-2.0); EOSINOPHILS % (AUTO) 1.8 % (0.0-6.0); HEMATOCRIT 45 % (33-45); HEMOGLOBIN 14.6 g/dL (11.5-14.8); LYMPHOCYTES # (AUTO) 1.3 /CMM (0.8-4.8); LYMPHOCYTES % (AUTO) 21.2 % (20.0-44.0); MEAN CORPUSCULAR HGB CONC 32 g/dl (31.0-36.0); MEAN CORPUSCULAR VOLUME 92 fL (82-100); MONOCYTES # (AUTO) 0.5 /CMM (0.1-1.30); NEUTROPHILS # (AUTO) 4.3 /CMM (1.8-8.9); NEUTROPHILS % (AUTO) 68.3 % (43.0-81.0); PLATELET COUNT (AUTO) 263 /CMM (150-450); RED BLOOD CELL COUNT(AUTO) 4.94 MIL/uL (4.0-5.2); WHITE BLOOD COUNT (AUTO) 6.4 K/uL (4.3-11.0)
--- NOTE | 2019-12-03 15:15 | NUR ---
taken to ct.
[2019-12-03 15:21] LABS: CREATININE 0.9 mg/dL (0.6-1.3); POTASSIUM 4.4 mmol/L (3.5-5.1)
--- NOTE | 2019-12-03 16:18 | NUR ---
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
--- NOTE | 2019-12-03 16:30 | NUR ---
SLING APPLIED TO RIGHT SHOULDER. IV removed. Catheter intact and site benign. Pressure and 4x4 applied to site. No bleeding noted.Patient discharged to home in stable condition. Written and verbal after care instructions given. Patient verbalizes understanding of instruction.
[2019-12-03 16:37] VITALS: BP 160/59
== END 2019-12-03 16:38 | disposition home or self-care (01) ==
LOC: ER 14:20
DX: S42.251A Displaced fracture of greater tuberosity of right humerus, initial encounter for closed fracture (principal); R51 Headache; E11.40 Type 2 diabetes mellitus with diabetic neuropathy, unspecified; G89.4 Chronic pain syndrome; E07.9 Disorder of thyroid, unspecified; Z79.84 Long term (current) use of oral hypoglycemic drugs; Z98.890 Other specified postprocedural states; Z60.2 Problems related to living alone; Z79.899 Other long term (current) drug therapy; W18.09XA Striking against other object with subsequent fall, initial encounter; Y93.89 Activity, other specified; Y92.89 Other specified places as the place of occurrence of the external cause; Y99.8 Other external cause status
CPT/HCPCS: 29105; 36415; 70450; 71045; 73030; 80048; 85025; 96374; 99285; J1885; J7040

== ENCOUNTER 2019-12-22 11:20 | Outpatient (CLI) | payer MEDICARE ==
[~2019-12-22 11:20] MED LIST changes: -ATOR10TA PO; -CEPH-570 PO
[2019-12-22 12:36] LABS: APPEARANCE,URINE CLEAR (CLEAR); BASOPHILS # (AUTO) 0.1 /CMM (0.0-0.2); BILIRUBIN,URINE NEGATIVE (NEGATIVE); BLOOD, URINE TRACE-INTA Ery/uL (NEGATIVE); COLOR,URINE YELLOW (YELLOW); EOSINOPHILS % (AUTO) 2.9 % (0.0-6.0); HEMATOCRIT 41 % (33-45); HEMOGLOBIN 13.4 g/dL (11.5-14.8); KETONES,URINE NEGATIVE (NEGATIVE); LEUKOCYTE ESTERASE ,URINE NEGATIVE (NEGATIVE); LYMPHOCYTES # (AUTO) 1.2 /CMM (0.8-4.8); LYMPHOCYTES % (AUTO) 21.1 % (20.0-44.0); MEAN CORPUSCULAR HGB CONC 33 g/dl (31.0-36.0); MEAN CORPUSCULAR VOLUME 91 fL (82-100); MONOCYTES # (AUTO) 0.4 /CMM (0.1-1.30); MONOCYTES % (AUTO) 6.2 % (2.0-12.0); NEUTROPHILS % (AUTO) 68.8 % (43.0-81.0); NITRITE, URINE NEGATIVE (NEGATIVE); PH,URINE 5.5 (5.0-8.0); PLATELET COUNT (AUTO) 345 /CMM (150-450); PROTEIN,URINE NEGATIVE (NEGATIVE); RED BLOOD CELL COUNT(AUTO) 4.51 MIL/uL (4.0-5.2); UGLUCOSE >=1000 mg/dL (NEGATIVE); UROBILINOGEN,URINE 0.2 EU/dL (0.2); WHITE BLOOD COUNT (AUTO) 5.7 K/uL (4.3-11.0)
[2019-12-22 12:52] LABS: CALCIUM, SERUM 8.6 mg/dL (8.5-10.1); POTASSIUM 4.4 mmol/L (3.5-5.1)
[2019-12-22 12:57] LABS: BACTERIA,URINE None seen /HPF (None Seen); RBC,URINE 0-2 /HPF (0-2); SQUAMOUS EPITHELIAL CELL,UR Few /HPF (None Seen); WBC,URINE 0-2 /HPF (0-3)
== END 2019-12-22 23:59 | disposition home or self-care (01) ==
LOC: LAB 11:20
DX: Z01.810 Encounter for preprocedural cardiovascular examination (principal); S42.291A Other displaced fracture of upper end of right humerus, initial encounter for closed fracture; Q79.1 Other congenital malformations of diaphragm; X58.XXXA Exposure to other specified factors, initial encounter; Y93.89 Activity, other specified; Y92.89 Other specified places as the place of occurrence of the external cause; Y99.8 Other external cause status
CPT/HCPCS: 36415; 71045-TC; 80048-TC; 81000-TC; 85025-TC; 85610-TC; 85730-TC

== ENCOUNTER → 2022-06-26 | Outpatient (CLI) | payer MEDICARE ==
[~2022-06-26] MED LIST changes: +MUPIROCIN 2% CREAM 15 GM TUBE TP ONE
== END | disposition home or self-care (01) ==
LOC: WOU 09:58
PROVIDERS: ATTEND Podiatrist Foot & Ankle Surgery
DX: T25.221A Burn of second degree of right foot, initial encounter (principal); T25.222A Burn of second degree of left foot, initial encounter; T24.102A Burn of first degree of unspecified site of left lower limb, except ankle and foot, initial encounter; T24.101A Burn of first degree of unspecified site of right lower limb, except ankle and foot, initial encounter; T31.0 Burns involving less than 10% of body surface; X58.XXXA Exposure to other specified factors, initial encounter; Y93.89 Activity, other specified; Y92.89 Other specified places as the place of occurrence of the external cause; L03.116 Cellulitis of left lower limb; L03.115 Cellulitis of right lower limb; E11.42 Type 2 diabetes mellitus with diabetic polyneuropathy; I10 Essential (primary) hypertension; Z79.84 Long term (current) use of oral hypoglycemic drugs
CPT/HCPCS: 87070-TC; 87075-TC; 87186-TC

== ENCOUNTER 2022-06-27 11:00 | Outpatient (CLI) | payer MEDICARE ==
[~2022-06-27 11:00] MED LIST changes: -MUPIROCIN 2% CREAM 15 GM TUBE TP ONE
== END 2022-06-27 23:59 | disposition home health service (06) ==
LOC: WOU 11:00
PROVIDERS: ATTEND Specialist
DX: T25.222D Burn of second degree of left foot, subsequent encounter (principal); T25.221D Burn of second degree of right foot, subsequent encounter; T24.202D Burn of second degree of unspecified site of left lower limb, except ankle and foot, subsequent encounter; T24.201D Burn of second degree of unspecified site of right lower limb, except ankle and foot, subsequent encounter; T31.0 Burns involving less than 10% of body surface; X08.8XXD Exposure to other specified smoke, fire and flames, subsequent encounter; L03.116 Cellulitis of left lower limb; L03.115 Cellulitis of right lower limb; E11.42 Type 2 diabetes mellitus with diabetic polyneuropathy; Z79.84 Long term (current) use of oral hypoglycemic drugs
CPT/HCPCS: 16020; 82962; A6209; G0463

== ENCOUNTER 2022-10-26 10:46 | Outpatient (CLI) | payer MEDICARE ==
[2022-10-26] MEDS ORDERED: COLLAGENASE 5 GM TUBE UD TP ONE (11:12)
== END 2022-10-26 23:59 | disposition home health service (06) ==
LOC: WOU 10:46
PROVIDERS: ATTEND Podiatrist Foot & Ankle Surgery
DX: E11.621 Type 2 diabetes mellitus with foot ulcer (principal); L97.412 Non-pressure chronic ulcer of right heel and midfoot with fat layer exposed; L97.522 Non-pressure chronic ulcer of other part of left foot with fat layer exposed; L97.528 Non-pressure chronic ulcer of other part of left foot with other specified severity; E11.40 Type 2 diabetes mellitus with diabetic neuropathy, unspecified; Z79.84 Long term (current) use of oral hypoglycemic drugs; I10 Essential (primary) hypertension
CPT/HCPCS: 11042

== ENCOUNTER 2022-11-02 10:50 | Outpatient (CLI) | payer MEDICARE ==
[2022-11-02] MEDS ORDERED: COLLAGENASE 5 GM TUBE UD TP ONE (11:29)
== END 2022-11-02 23:59 | disposition home health service (06) ==
LOC: WOU 10:50
PROVIDERS: ATTEND Podiatrist Foot & Ankle Surgery
DX: E11.621 Type 2 diabetes mellitus with foot ulcer (principal); L97.312 Non-pressure chronic ulcer of right ankle with fat layer exposed; L97.522 Non-pressure chronic ulcer of other part of left foot with fat layer exposed; L97.512 Non-pressure chronic ulcer of other part of right foot with fat layer exposed; Z79.4 Long term (current) use of insulin; Z79.84 Long term (current) use of oral hypoglycemic drugs
CPT/HCPCS: 11042; 11045

== ENCOUNTER 2022-11-07 13:26 | Outpatient (CLI) | payer MEDICARE ==
[~2022-11-07 13:26] MED LIST changes: +COLLAGENASE 5 GM TUBE UD TP ONE
== END 2022-11-07 23:59 | disposition home health service (06) ==
LOC: WOU 13:26
PROVIDERS: ATTEND Podiatrist Foot & Ankle Surgery
DX: E11.621 Type 2 diabetes mellitus with foot ulcer (principal); L97.522 Non-pressure chronic ulcer of other part of left foot with fat layer exposed; L97.512 Non-pressure chronic ulcer of other part of right foot with fat layer exposed; L97.412 Non-pressure chronic ulcer of right heel and midfoot with fat layer exposed; Z79.85 Long-term (current) use of injectable non-insulin antidiabetic drugs; Z79.84 Long term (current) use of oral hypoglycemic drugs
CPT/HCPCS: 11042; 11045; A6253

== ENCOUNTER 2022-11-14 14:00 | Outpatient (CLI) | payer MEDICARE ==
[~2022-11-14 14:00] MED LIST changes: -COLLAGENASE 5 GM TUBE UD TP ONE
[2022-11-14] MEDS ORDERED: COLLAGENASE 5 GM TUBE UD TP ONE (14:06)
== END 2022-11-14 23:59 | disposition home health service (06) ==
LOC: WOU 14:00
PROVIDERS: ATTEND Podiatrist Foot & Ankle Surgery
DX: E11.621 Type 2 diabetes mellitus with foot ulcer (principal); L97.412 Non-pressure chronic ulcer of right heel and midfoot with fat layer exposed; L97.522 Non-pressure chronic ulcer of other part of left foot with fat layer exposed; L97.518 Non-pressure chronic ulcer of other part of right foot with other specified severity; Z79.85 Long-term (current) use of injectable non-insulin antidiabetic drugs; Z79.84 Long term (current) use of oral hypoglycemic drugs
CPT/HCPCS: 11042; 11045

== ENCOUNTER 2022-11-21 12:45 | Outpatient (CLI) | payer MEDICARE ==
[2022-11-21] MEDS ORDERED: COLLAGENASE 5 GM TUBE UD TP ONE (14:02)
== END 2022-11-21 23:59 | disposition home health service (06) ==
LOC: WOU 12:45
PROVIDERS: ATTEND Specialist
DX: E11.621 Type 2 diabetes mellitus with foot ulcer (principal); L97.522 Non-pressure chronic ulcer of other part of left foot with fat layer exposed; L97.412 Non-pressure chronic ulcer of right heel and midfoot with fat layer exposed; L97.518 Non-pressure chronic ulcer of other part of right foot with other specified severity; E11.40 Type 2 diabetes mellitus with diabetic neuropathy, unspecified; M46.26 Osteomyelitis of vertebra, lumbar region; Z79.85 Long-term (current) use of injectable non-insulin antidiabetic drugs; Z79.84 Long term (current) use of oral hypoglycemic drugs; I10 Essential (primary) hypertension
CPT/HCPCS: G0463

== ENCOUNTER 2022-11-28 15:12 | Outpatient (CLI) | payer MEDICARE ==
[~2022-11-28 15:12] MED LIST changes: +COLLAGENASE 5 GM TUBE UD TP ONE
[2022-12-07] MEDS ORDERED: CELE100C PO (11:40)
[2022-12-07] MEDS ORDERED: MERO1VIA23 IV (11:40)
== END 2022-11-28 23:59 | disposition home health service (06) ==
LOC: WOU 15:12
PROVIDERS: ATTEND Podiatrist Foot & Ankle Surgery
DX: E11.621 Type 2 diabetes mellitus with foot ulcer (principal); L97.412 Non-pressure chronic ulcer of right heel and midfoot with fat layer exposed; L97.522 Non-pressure chronic ulcer of other part of left foot with fat layer exposed; M46.26 Osteomyelitis of vertebra, lumbar region; E11.40 Type 2 diabetes mellitus with diabetic neuropathy, unspecified; I10 Essential (primary) hypertension; Z79.85 Long-term (current) use of injectable non-insulin antidiabetic drugs; Z79.84 Long term (current) use of oral hypoglycemic drugs
CPT/HCPCS: 11042; 11043

== ENCOUNTER 2022-12-04 13:12 | Inpatient (IN) | payer MEDICARE ==
[~2022-12-04] VITALS: Ht 165.1 cm; Wt 65.3 kg
[~2022-12-04 13:12] MED LIST changes: -COLLAGENASE 5 GM TUBE UD TP ONE
[2022-12-04] MEDS ORDERED: MORPHINE SULFATE INJ 2 MG/ML DISP.SYRIN IV ONE ×2 (14:00→17:00)
[2022-12-04] MEDS ORDERED: MEROPENEM 1,000 MG in IV NS 0.9% 100 ML IV ONE (14:00)
--- NOTE | 2022-12-04 14:15 | NUR ---
INSTRUMENTS SALES REPRESENTATIVE AT BEDSIDE
--- NOTE | 2022-12-04 14:46 | NUR ---
ESTABLISHED IV ACCESS. L WRIST 20G
[2022-12-04] MEDS ORDERED: FURO40TA5 PO (14:49)
[2022-12-04] MEDS ORDERED: ATOR40TA PO (14:49)
[2022-12-04] MEDS ORDERED: HYDR-3972 PO (14:49)
[2022-12-04] MEDS ORDERED: METO-357 PO (14:49)
[2022-12-04] MEDS ORDERED: HYDR-4209 PO (14:49)
[2022-12-04] MEDS ORDERED: ONDA-97 PO (14:49)
[2022-12-04] MEDS ORDERED: ASPI-1169 PO (14:49)
[2022-12-04] MEDS ORDERED: FAMO-108 PO (14:49)
[2022-12-04] MEDS ORDERED: GABA300C PO (14:49)
[2022-12-04] MEDS ORDERED: ACET-868 PO (14:49)
[2022-12-04] MEDS ORDERED: EMPA10TA PO (14:49)
[2022-12-04] MEDS ORDERED: TICA90TA PO (14:49)
[2022-12-04] MEDS ORDERED: NITR0.4T48 SL (14:49)
--- NOTE | 2022-12-04 14:50 | NUR ---
BLOOD SAMPLE TAKEN AND SENT TO LAB
[2022-12-04] MEDS ORDERED: MORPHINE SULFATE INJ 2 MG/ML DISP.SYRIN ONE ×2 (14:55→16:43)
--- NOTE | 2022-12-04 15:05 | NUR ---
PATIENT TAKEN TO RADIOLOGY VIA [facility]
[2022-12-04 15:14] LABS: BASOPHILS % (AUTO) 0.2 % (0.0-2.0); EOSINOPHILS % (AUTO) 1.7 % (0.0-6.0); HEMATOCRIT 36 % (33-45); HEMOGLOBIN 11.5 g/dL (11.5-14.8); LYMPHOCYTES # (AUTO) 0.9 K/uL (0.8-4.8); LYMPHOCYTES % (AUTO) 9.3 % (20.0-44.0); MEAN CORPUSCULAR HGB CONC 32 g/dl (31.0-36.0); MEAN CORPUSCULAR VOLUME 87 fL (82-100); MONOCYTES # (AUTO) 0.4 K/uL (0.1-1.30); MONOCYTES % (AUTO) 4.6 % (2.0-12.0); NEUTROPHILS # (AUTO) 7.9 K/uL (1.8-8.9); NEUTROPHILS % (AUTO) 84.2 % (43.0-81.0); PLATELET COUNT (AUTO) 375 K/uL (150-450); RED BLOOD CELL COUNT(AUTO) 4.13 MIL/uL (4.0-5.2); WHITE BLOOD COUNT (AUTO) 9.4 K/uL (4.3-11.0)
[2022-12-04 15:48] LABS: ALBUMIN 2.5 g/dL (3.4-5.0); BILIRUBIN,TOTAL 0.4 mg/dL (0.2-1.0); CALCIUM, SERUM 8.8 mg/dL (8.5-10.1); CREATININE 1.1 mg/dL (0.6-1.3); TOTAL PROTEIN, SERUM 7.1 g/dL (6.4-8.2)
[2022-12-04 15:49] LABS: C-REACTIVE PROTEIN 4.9 mg/dL (0.0-0.9)
[2022-12-04] MEDS ORDERED: Z GUARD REMEDY 4 OZ OINT TP PRN (16:00)
[2022-12-04] MEDS ORDERED: MAGNESIUM HYDROXIDE 30 ML UDC PO PRN (16:00)
[2022-12-04] MEDS ORDERED: ZOLPIDEM TARTRATE 5 MG TABLET PO PRN (16:00)
[2022-12-04] MEDS ORDERED: ACETAMINOPHEN 325 MG TABLET PO PRN (16:00)
[2022-12-04] MEDS ORDERED: HYDROCODONE/APAP 5/325MG TABLET PO PRN (16:00)
[2022-12-04] MEDS: ENOXAPARIN SODIUM 40 MG/0.4 ML DISP.SYRIN SQ SCH (16:00)
[2022-12-04] MEDS ORDERED: MAG HYDROX/AL HYDROX/SIMETH 30 ML UDC PO PRN (16:00)
[2022-12-04] MEDS ORDERED: ONDANSETRON HCL/PF 4 MG/2 ML VIAL IVP PRN (16:00)
--- NOTE | 2022-12-04 17:46 | NUR ---
report given to Rhonda FRANKS
--- NOTE | 2022-12-04 18:05 | NUR ---
RN NOTES: RECEIVED PT FROM ER VIA GURNEY, PT WAS ABLE TO TRANSFER TO BED BY SCOOTING. PT IS AWAKE, A/OX4, ABLE TO MAKE NEEDS KNOWN, ORIENTED TO UNIT AND STAFF. PT ON RA, WITH 100% O2 SAT, NO S/S OF SOB. C/O PAIN 2-12/28 AT THIS TIME, WILL MEDICATE ORDERED, OTHERWISE VITALS ARE WNL. IV ACCESS @ L WRIST #20, SL, PATENT AND INTACT. DRESSINGS ON LEFT AND RIGHT FOOT NOTED, DRY AND INTACT. PUREWICK APPLIED PER PT REQUEST. SAFETY MEASURES IN PLACE, CALL LIGHT AND TABLE WITHIN EASY REACH. ENDORSED TO PM SHIFT.
--- NOTE | 2022-12-04 19:30 | NUR ---
HOD CARRIER NOTE PATIENT ARRIVED TO UNIT STABLE. A/OX4. NO S/S OF DISTRESS, BREATHING WITHOUT DIFFICULTY ON ROOM AIR. LAC #20 INTACT AND PATENT. SAFETY MEASURES IN PLACE, BED LOCKED AND AT LOWEST POSITION, RAILS UP X2, CALL LIMA WITHIN REACH. PATIENT ORIENTED TO THE UNIT, GIVEN CALL LIMA AND INSTRUCTED ON ITS USE. PATIENT EDUCATION GIVEN ON PAIN MANAGEMENT. WILL CONTINUE TO MONITOR PATIENT.
[2022-12-04] MEDS: MEROPENEM 500 MG in IV NS 0.9% 50 ML IV SCH (21:34)
[2022-12-04] MEDS: MORPHINE SULFATE INJ 2 MG/ML DISP.SYRIN IV PRN (21:34)
[2022-12-04] MEDS ORDERED: VANCOMYCIN 1 GM in IV D5W 250ml IV ONE (22:00)
[2022-12-04] MEDS ORDERED: VANCOMYCIN 1 GM VIAL ONE (22:32)
[2022-12-05 00:45] VITALS: BP 106/43
[2022-12-05] MEDS: MORPHINE SULFATE INJ 2 MG/ML DISP.SYRIN IV PRN ×5 (01:34→21:05)
[2022-12-05 05:49] LABS: BASOPHILS # (AUTO) 0.1 K/uL (0.0-0.2); BASOPHILS % (AUTO) 0.7 % (0.0-2.0); EOSINOPHILS % (AUTO) 2.1 % (0.0-6.0); HEMATOCRIT 34 % (33-45); HEMOGLOBIN 10.9 g/dL (11.5-14.8); LYMPHOCYTES # (AUTO) 0.5 K/uL (0.8-4.8); LYMPHOCYTES % (AUTO) 6.7 % (20.0-44.0); MEAN CORPUSCULAR HGB CONC 32 g/dl (31.0-36.0); MEAN CORPUSCULAR VOLUME 87 fL (82-100); MONOCYTES # (AUTO) 0.5 K/uL (0.1-1.30); MONOCYTES % (AUTO) 6.2 % (2.0-12.0); NEUTROPHILS # (AUTO) 6.6 K/uL (1.8-8.9); NEUTROPHILS % (AUTO) 84.3 % (43.0-81.0); PLATELET COUNT (AUTO) 330 K/uL (150-450); RED BLOOD CELL COUNT(AUTO) 3.93 MIL/uL (4.0-5.2); WHITE BLOOD COUNT (AUTO) 7.9 K/uL (4.3-11.0)
[2022-12-05 06:09] LABS: CALCIUM, SERUM 8.7 mg/dL (8.5-10.1); CARBON DIOXIDE 22 mmol/L (21-32); CHLORIDE 105 mmol/L (98-107); CREATININE 0.7 mg/dL (0.6-1.3); GLUCOSE 157 mg/dL (74-106); PHOSPHORUS 4.3 mg/dL (2.5-4.9); POTASSIUM 4.1 mmol/L (3.5-5.1); SODIUM SERUM 136 mmol/L (136-145); UREA NITROGEN, BLOOD 20 mg/dL (7-18)
--- NOTE | 2022-12-05 06:41 | NUR ---
RN CLOSING NOTE PATIENT ASLEEP IN BED. A/OX4. NO S/S OF DISTRESS, BREATHING WITHOUT DIFFICULTY ON ROOM AIR. LAC #20 SL INTACT AND PATENT. SAFETY MEASURES IN PLACE: BED LOCKED AND AT LOWEST POSITION, RAILS UP X2, CALL LIMA WITHIN REACH. WILL ENDORSE TO DAY SHIFT FOR ANATOLIY.
--- NOTE | 2022-12-05 07:54 | NUR ---
MS RN OPENING NOTE Patient in bed, asleep. A/O x 4. On room air, breathing evenly and unlabored. No SOB or s/s of distress noted. IV access on LAC #20 SL, intact and patent. Purewick in place. Safety precautions in place: bed in low, locked position; siderails up x 2; call light within reach. Will continue to monitor.
[2022-12-05 08:00] VITALS: BP 96/39
[2022-12-05] MEDS: MEROPENEM 500 MG in IV NS 0.9% 50 ML IV SCH ×2 (08:34→20:41)
[2022-12-05] MEDS: PANTOPRAZOLE 40 MG TABLET.DR PO SCH (08:34)
--- NOTE | 2022-12-05 10:26 | NUR ---
RN NOTE Patient complained of pain on lower back 8/10 on pain scale. PRN Morphine 2mg IV given. Will continue to monitor.
[2022-12-05] MEDS ORDERED: GADOTERATE MEGLUMINE 10 MMOL/20 ML VIAL IV ONE (10:49)
--- NOTE | 2022-12-05 11:15 | NUR ---
WOUND CARE CONSULT: PT PRESENTS WITH BILATERAL FOOT DRESSINGS WHICH ARE DRY AND INTACT. DR BROWN CALLED FOR DPM CONSULT. IN AGREEMENT WITH PLAN OF CARE. DISCUSSED SKIN PROTECTION WITH NURSING STAFF. WILL SEE PRN.
[2022-12-05 15:36] VITALS: BP 120/65
[2022-12-05] MEDS: VANCOMYCIN 1.25 GM in IV D5W 250 ML IV SCH (16:47)
--- NOTE | 2022-12-05 18:44 | NUR ---
MS RN CLOSING NOTE Patient in bed, awake. A/O x 4, able to make needs known. On room air, breathing evenly and unlabored. No SOB or s/s of distress noted. IV access on Left wrist #20 SL, intact and patent. Purewick in place draining to a yellow colored urine with an output of [address] Mckenzie did wound care on bilateral feet wounds. All needs attended to. Due meds given. Safety precautions in place: bed in low, locked position; siderails up x 2; call light within reach. Will endorse to baseball sewer hand nurse for ANATOLIY. Addendum: 12/05/22 at 1918 by ALEXANDRA WILSON RN ADD: Neeta changed.
--- NOTE | 2022-12-05 19:00 | NUR ---
PATIENT RECEIVED FROM DAY SHIFT NURSE AMANDA3. VITAL SIGNS STABLE. SALINE LOCK IN LEFT WRIST INTACT AND PATENT. PATIENT COMPLAINS OF BACK PAIN. PAIN MEDS GIVEN. PT RESTING COMFORTABLY ON THE PHONE WITH FAMILY MEMBER. NO SIGNS OF DISTRESS NOTED.
[2022-12-05 20:38] VITALS: BP 113/53
[2022-12-05 20:41] VITALS: BP 110/51
[2022-12-05] MEDS: ENOXAPARIN SODIUM 40 MG/0.4 ML DISP.SYRIN SQ SCH (20:45)
--- NOTE | 2022-12-06 07:33 | NUR ---
REPORT GIVEN TO INCOMING NURSE. PATIENT IN STABLE CONDITION. SALINE LOCK PATENT AND INTACT. NO ACUTE DISTRESS NOTED.
[2022-12-06 08:00] VITALS: BP 130/61
--- NOTE | 2022-12-06 08:00 | NUR ---
MS RN OPENING NOTE RN OPENING NOTES Patient in bed, awake. A/O x 4, able to make needs known. On room air, breathing evenly and unlabored. No SOB or s/s of distress noted. IV access on Left wrist #20 SL, intact and patent. Purewick in place draining to a yellow colored urine. bilateral feet wounds noted. attended to. Due Safety precautions in place: bed in low, locked position; siderails up x 2; call light within reach. Will continue to monitor.
[2022-12-06] MEDS: PANTOPRAZOLE 40 MG TABLET.DR PO SCH (08:04)
[2022-12-06] MEDS: MEROPENEM 500 MG in IV NS 0.9% 50 ML IV SCH ×2 (08:49→21:20)
[2022-12-06] MEDS: MORPHINE SULFATE INJ 2 MG/ML DISP.SYRIN IV PRN (08:56)
[2022-12-06 09:11] LABS: BASOPHILS # (AUTO) 0.1 K/uL (0.0-0.2); BASOPHILS % (AUTO) 0.9 % (0.0-2.0); EOSINOPHILS % (AUTO) 4.6 % (0.0-6.0); HEMATOCRIT 34 % (33-45); HEMOGLOBIN 10.9 g/dL (11.5-14.8); LYMPHOCYTES # (AUTO) 0.7 K/uL (0.8-4.8); LYMPHOCYTES % (AUTO) 11.7 % (20.0-44.0); MEAN CORPUSCULAR HGB CONC 32 g/dl (31.0-36.0); MEAN CORPUSCULAR VOLUME 87 fL (82-100); MONOCYTES # (AUTO) 0.4 K/uL (0.1-1.30); MONOCYTES % (AUTO) 6.5 % (2.0-12.0); NEUTROPHILS # (AUTO) 4.4 K/uL (1.8-8.9); NEUTROPHILS % (AUTO) 76.3 % (43.0-81.0); PLATELET COUNT (AUTO) 284 K/uL (150-450); RED BLOOD CELL COUNT(AUTO) 3.88 MIL/uL (4.0-5.2); WHITE BLOOD COUNT (AUTO) 5.7 K/uL (4.3-11.0)
[2022-12-06 09:39] LABS: CALCIUM, SERUM 8.7 mg/dL (8.5-10.1); CARBON DIOXIDE 26 mmol/L (21-32); CHLORIDE 105 mmol/L (98-107); CREATININE 0.9 mg/dL (0.6-1.3); GLUCOSE 163 mg/dL (74-106); PHOSPHORUS 3.7 mg/dL (2.5-4.9); POTASSIUM 4.8 mmol/L (3.5-5.1); SODIUM SERUM 136 mmol/L (136-145); UREA NITROGEN, BLOOD 23 mg/dL (7-18)
[2022-12-06] MEDS ORDERED: ACETAMINOPHEN 325 MG TABLET PO PRN (12:30)
[2022-12-06] MEDS ORDERED: HYDROCODONE/APAP 5/325MG TABLET PO PRN ×3 (12:30→14:30)
[2022-12-06] MEDS ORDERED: FUROSEMIDE 40 MG TABLET PO PRN (12:30)
[2022-12-06] MEDS ORDERED: NITROGLYCERIN 0.4 MG/TAB BOTTLE SL PRN (12:30)
[2022-12-06] MEDS ORDERED: GABAPENTIN 300 MG CAPSULE PO PRN (12:30)
[2022-12-06] MEDS ORDERED: ONDANSETRON 4 MG TAB.RAPDIS PO PRN (13:00)
[2022-12-06] MEDS ORDERED: MORPHINE SULFATE INJ 2 MG/ML DISP.SYRIN IV PRN (14:00)
[2022-12-06] MEDS ORDERED: HYDROCODONE/APAP 10/325MG TABLET PO PRN (14:30)
[2022-12-06] MEDS: CELECOXIB 100 MG CAPSULE PO SCH ×2 (15:52→21:00)
[2022-12-06] MEDS: GABAPENTIN 300 MG CAPSULE PO SCH ×2 (15:52→18:51)
[2022-12-06 16:00] VITALS: BP 147/76
[2022-12-06] MEDS: METFORMIN 500 MG TABLET PO SCH (16:45)
[2022-12-06] MEDS: TICAGRELOR 90 MG TABLET PO SCH ×2 (17:00→18:47)
--- NOTE | 2022-12-06 17:00 | NUR ---
RN NOTES PATIENT WAS ASKING ABOUT GETTING HER PICC LINE, NOTIFIED DR. MANCILLA. PER DR. MANCILLA, PATIENT WILL HAVE ONE BEFORE DISCHARGE.
--- NOTE | 2022-12-06 18:34 | NUR ---
MS RN CLOSING NOTE Patient in bed, awake. A/O x 4, able to make needs known. On room air, breathing evenly and unlabored. No SOB or s/s of distress noted. IV access on Left wrist #20 SL, intact and patent. Purewick in place draining to a yellow colored urine with an output of 700ML.all due meds given. All needs attended. Safety precautions in place: bed in low, locked position; siderails up x 2; call light within reach. Will endorse to cage shift manager nurse for ANATOLIY.
--- NOTE | 2022-12-06 18:38 | NUR ---
RN NOTES BRILINTA NOT AVAILABLE, NOT GIVEN
[2022-12-06] MEDS: VANCOMYCIN 1.25 GM in IV D5W 250 ML IV SCH (19:00)
[2022-12-06] MEDS: ENOXAPARIN SODIUM 40 MG/0.4 ML DISP.SYRIN SQ SCH (21:40)
--- NOTE | 2022-12-06 21:41 | NUR ---
ANTICOAGULANT H/H 10. Plt 284 No bleeding. Given Lovenox injection co-signed by Kendell Syed. Celebrex not given, too close for next administration, last given 1552. Frequency q12H,
[2022-12-06] MEDS ORDERED: DULOXETINE HCL 30 MG CAPSULE.DR PO SCH (22:00)
[2022-12-06] MEDS ORDERED: ATORVASTATIN 40 MG TABLET PO SCH (22:00)
[2022-12-07] MEDS ORDERED: VANCOMYCIN 0.75 GM in IV D5W 250 ML IV SCH (04:00)
[2022-12-07 05:54] LABS: BASOPHILS % (AUTO) 0.7 % (0.0-2.0); EOSINOPHILS % (AUTO) 4.5 % (0.0-6.0); HEMATOCRIT 35 % (33-45); HEMOGLOBIN 11.2 g/dL (11.5-14.8); LYMPHOCYTES # (AUTO) 0.7 K/uL (0.8-4.8); LYMPHOCYTES % (AUTO) 11.9 % (20.0-44.0); MEAN CORPUSCULAR HGB CONC 32 g/dl (31.0-36.0); MEAN CORPUSCULAR VOLUME 86 fL (82-100); MONOCYTES # (AUTO) 0.4 K/uL (0.1-1.30); NEUTROPHILS # (AUTO) 4.4 K/uL (1.8-8.9); NEUTROPHILS % (AUTO) 75.9 % (43.0-81.0); PLATELET COUNT (AUTO) 319 K/uL (150-450); RED BLOOD CELL COUNT(AUTO) 4.05 MIL/uL (4.0-5.2); WHITE BLOOD COUNT (AUTO) 5.7 K/uL (4.3-11.0)
--- NOTE | 2022-12-07 06:08 | NUR ---
END OF SHIFT REPORT Patient in bed, A/O x4. Left wrist IV intact, On IV abx Afebrile. Back pain controlled. Oxygen sat high 90's in RA. PT eval pending, patient refused per records. Good urine output, purewick device. No BM during the shift. Plan for dc on IV abx x 6weeks as per patient refusal transfer to higher level of care at [facility]. Patient needs PICC line per ID recommendation prior dc. Will endorse to oncoming RN.
[2022-12-07 06:10] LABS: CALCIUM, SERUM 8.6 mg/dL (8.5-10.1); CREATININE 0.8 mg/dL (0.6-1.3); MAGNESIUM 1.9 mg/dL (1.8-2.4)
[2022-12-07] MEDS ORDERED: LEVOTHYROXINE SODIUM 175 MCG TABLET PO SCH (07:30)
--- NOTE | 2022-12-07 07:35 | NUR ---
MSSN- RECEIVED PT AWAKE AND ALERT X4. NON LABORED BREATHING, PT STATES SHE IS NOT IN PAIN. CALL LIGHT WITHIN REACH. IV INTACT.
[2022-12-07] MEDS: PANTOPRAZOLE 40 MG TABLET.DR PO SCH (08:17)
--- NOTE | 2022-12-07 08:30 | NUR ---
MSSN- PT RECEIVED SCHEDULED MEDS.TOLERATED WELL. PT DECLINED BREAKFAST, STATES SHE DOESN'T USUALLY EAT BREAKFAST AT HOME. NO OTHER NEEDS NEEDED AT THIS TIME.
[2022-12-07 09:00] VITALS: BP 139/81
[2022-12-07] MEDS ORDERED: Medication Not On Formulary EA (Empagliflozin (Jardiance) 10 MG) PO SCH (09:00)
[2022-12-07] MEDS ORDERED: FAMOTIDINE (20 MG) 20 MG TABLET PO SCH (09:00)
[2022-12-07] MEDS ORDERED: METOPROLOL SUCCINATE 50 MG TAB.SR.24H PO SCH (09:00)
[2022-12-07] MEDS ORDERED: DAKINS QUARTER STRENGTH (0.125%) 480 ML BOTTLE TOP SCH (09:00)
[2022-12-07] MEDS ORDERED: ASPIRIN 81 MG TAB.CHEW PO SCH (09:00)
[2022-12-07] MEDS ORDERED: THERAHONEY GEL 1.5 OZ TUBE TP SCH (09:00)
[2022-12-07] MEDS: GABAPENTIN 300 MG CAPSULE PO SCH ×3 (09:16→17:07)
[2022-12-07] MEDS: METFORMIN 500 MG TABLET PO SCH ×2 (09:17→17:07)
[2022-12-07] MEDS: CELECOXIB 100 MG CAPSULE PO SCH (09:17)
[2022-12-07] MEDS: TICAGRELOR 90 MG TABLET PO SCH ×2 (09:18→17:07)
[2022-12-07] MEDS: MEROPENEM 500 MG in IV NS 0.9% 50 ML IV SCH (09:20)
--- NOTE | 2022-12-07 09:50 | NUR ---
ms rn gave fruit plate instead of regular breakfast. up w/ physical therapy, walked w/ FWW,tolerated well.
[2022-12-07] MEDS ORDERED: CELE100C PO (11:40)
[2022-12-07] MEDS ORDERED: MERO1VIA23 IV (11:40)
[2022-12-07 16:13] VITALS: BP 120/74
[2022-12-07] MEDS ORDERED: PROSOURCE / PROSTAT (PYXIS) 30 ML UDC PO SCH (17:00)
[2022-12-07] MEDS ORDERED: MEROPENEM 500 MG in IV NS 0.9% 50 ML IV ONE (17:00)
--- NOTE | 2022-12-07 18:00 | NUR ---
ms rn due atb iv given earlier, discharge instructions given and understood, was seen by dr. Dubon, dressing to bilateral foot done, went home accompanied by a friend,all needs attended.
== END 2022-12-07 18:12 | disposition home health service (06) | DRG 638 ==
LOC: ER 13:19 → MED 17:23
PROVIDERS: ADMIT Student in an Organized Health Care Education/Training Program; ATTEND Student in an Organized Health Care Education/Training Program
PROC: 02HV33Z Insertion of Infusion Device into Superior Vena Cava, Percutaneous Approach (ICD-10-PCS; principal; 2022-12-07)
PROC: B548ZZA Ultrasonography of Superior Vena Cava, Guidance (ICD-10-PCS; 2022-12-07)
DX: E11.69 Type 2 diabetes mellitus with other specified complication (principal); M46.26 Osteomyelitis of vertebra, lumbar region; G89.4 Chronic pain syndrome; E11.40 Type 2 diabetes mellitus with diabetic neuropathy, unspecified; E03.9 Hypothyroidism, unspecified; M46.46 Discitis, unspecified, lumbar region; E11.49 Type 2 diabetes mellitus with other diabetic neurological complication; E11.42 Type 2 diabetes mellitus with diabetic polyneuropathy; E11.621 Type 2 diabetes mellitus with foot ulcer; L97.519 Non-pressure chronic ulcer of other part of right foot with unspecified severity; L97.529 Non-pressure chronic ulcer of other part of left foot with unspecified severity; Z89.422 Acquired absence of other left toe(s); Z79.82 Long term (current) use of aspirin; Z79.02 Long term (current) use of antithrombotics/antiplatelets; Z79.84 Long term (current) use of oral hypoglycemic drugs; Z79.899 Other long term (current) drug therapy; Z98.890 Other specified postprocedural states; M62.830 Muscle spasm of back; Z95.5 Presence of coronary angioplasty implant and graft; M48.061 Spinal stenosis, lumbar region without neurogenic claudication
CPT/HCPCS: 36415; 71045-TC; 72158-TC; 80048-TC; 80053-TC; 83735-TC; 84100-TC; 85025-TC; 85652-TC; 85730-TC; 86140-TC; 87040-TC; 87081-TC; 97116-TC; 97530-TC; A4223; A6403; A9575; C9803; G0378; J1650; J2185; J2270; J3370; J7030; J7040; J7060

== ENCOUNTER 2022-12-11 11:06 | Outpatient (CLI) | payer MEDICARE ==
[~2022-12-11 11:06] MED LIST changes: +ACET-868 PO; +ASPI-1169 PO; +ATOR40TA PO; +CELE100C PO; -DULA1.5P SQ; +EMPA10TA PO; -EMPA25TA PO; +ENOXAPARIN SODIUM 40 MG/0.4 ML DISP.SYRIN SQ ONE; +FAMO-108 PO; +FURO40TA5 PO; +GABA300C PO; +HYDR-3972 PO; +HYDR-4209 PO; +MERO1VIA23 IV; +METO-357 PO; +NITR0.4T48 SL; +ONDA-97 PO; +TICA90TA PO; +VANCOMYCIN 1 GM VIAL ONE
[2022-12-11] MEDS ORDERED: COLLAGENASE 5 GM TUBE UD TP ONE (11:23)
== END 2022-12-11 23:59 | disposition home health service (06) ==
LOC: WOU 11:06
PROVIDERS: ATTEND Podiatrist Foot & Ankle Surgery
DX: E11.621 Type 2 diabetes mellitus with foot ulcer (principal); L97.412 Non-pressure chronic ulcer of right heel and midfoot with fat layer exposed; L97.522 Non-pressure chronic ulcer of other part of left foot with fat layer exposed; E11.40 Type 2 diabetes mellitus with diabetic neuropathy, unspecified; E11.69 Type 2 diabetes mellitus with other specified complication; M46.26 Osteomyelitis of vertebra, lumbar region; Z89.422 Acquired absence of other left toe(s); E03.9 Hypothyroidism, unspecified; I10 Essential (primary) hypertension; Z79.84 Long term (current) use of oral hypoglycemic drugs; Z79.85 Long-term (current) use of injectable non-insulin antidiabetic drugs
CPT/HCPCS: 11042; 11045; J1650; J3370

== ENCOUNTER 2022-12-19 14:52 | Outpatient (CLI) | payer MEDICARE ==
[~2022-12-19 14:52] MED LIST changes: -ENOXAPARIN SODIUM 40 MG/0.4 ML DISP.SYRIN SQ ONE; -VANCOMYCIN 1 GM VIAL ONE
== END 2022-12-19 23:59 | disposition home health service (06) ==
LOC: WOU 14:52
PROVIDERS: ATTEND Podiatrist Foot & Ankle Surgery
DX: E11.621 Type 2 diabetes mellitus with foot ulcer (principal); L97.412 Non-pressure chronic ulcer of right heel and midfoot with fat layer exposed; L97.522 Non-pressure chronic ulcer of other part of left foot with fat layer exposed; Z79.85 Long-term (current) use of injectable non-insulin antidiabetic drugs; Z79.84 Long term (current) use of oral hypoglycemic drugs; E11.69 Type 2 diabetes mellitus with other specified complication; M46.26 Osteomyelitis of vertebra, lumbar region
CPT/HCPCS: 11042; 11043

== ENCOUNTER 2023-01-02 13:13 | Outpatient (CLI) | payer MEDICARE | END 2023-01-02 23:59 | disposition home health service (06) | LOC: WOU 13:13 | PROVIDERS: ATTEND Podiatrist Foot & Ankle Surgery | DX: E11.621 Type 2 diabetes mellitus with foot ulcer (principal); L97.412 Non-pressure chronic ulcer of right heel and midfoot with fat layer exposed; L97.522 Non-pressure chronic ulcer of other part of left foot with fat layer exposed; M46.26 Osteomyelitis of vertebra, lumbar region; E11.40 Type 2 diabetes mellitus with diabetic neuropathy, unspecified; I10 Essential (primary) hypertension; E66.9 Obesity, unspecified; Z68.31 Body mass index [BMI] 31.0-31.9, adult; Z79.84 Long term (current) use of oral hypoglycemic drugs; Z79.85 Long-term (current) use of injectable non-insulin antidiabetic drugs | CPT/HCPCS: 11042; 11043 ==

== ENCOUNTER 2023-01-15 15:34 | Outpatient (CLI) | payer MEDICARE | END 2023-01-15 23:59 | disposition home or self-care (01) | LOC: MRI 15:34 | PROVIDERS: ATTEND Podiatrist Foot & Ankle Surgery | DX: M25.571 Pain in right ankle and joints of right foot (principal); M76.61 Achilles tendinitis, right leg; M79.89 Other specified soft tissue disorders | CPT/HCPCS: 73721-TC ==

== ENCOUNTER 2023-01-16 13:39 | Outpatient (CLI) | payer MEDICARE | END 2023-01-16 23:59 | disposition home health service (06) | LOC: WOU 13:39 | PROVIDERS: ATTEND Podiatrist Foot & Ankle Surgery | DX: E11.621 Type 2 diabetes mellitus with foot ulcer (principal); L97.413 Non-pressure chronic ulcer of right heel and midfoot with necrosis of muscle; L97.523 Non-pressure chronic ulcer of other part of left foot with necrosis of muscle; E11.69 Type 2 diabetes mellitus with other specified complication; M46.26 Osteomyelitis of vertebra, lumbar region; Z79.85 Long-term (current) use of injectable non-insulin antidiabetic drugs; Z79.84 Long term (current) use of oral hypoglycemic drugs | CPT/HCPCS: 11044; 11047 ==

== ENCOUNTER 2023-01-23 13:41 | Outpatient (CLI) | payer MEDICARE | END 2023-01-23 23:59 | disposition home health service (06) | LOC: WOU 13:41 | PROVIDERS: ATTEND Podiatrist Foot & Ankle Surgery | DX: E11.621 Type 2 diabetes mellitus with foot ulcer (principal); L97.412 Non-pressure chronic ulcer of right heel and midfoot with fat layer exposed; L97.528 Non-pressure chronic ulcer of other part of left foot with other specified severity; E11.69 Type 2 diabetes mellitus with other specified complication; M86.171 Other acute osteomyelitis, right ankle and foot; M46.26 Osteomyelitis of vertebra, lumbar region; Z79.85 Long-term (current) use of injectable non-insulin antidiabetic drugs; Z79.84 Long term (current) use of oral hypoglycemic drugs | CPT/HCPCS: 11042; 11043; 97605-TC ==

== ENCOUNTER 2023-01-30 13:16 | Outpatient (CLI) | payer MEDICARE | END 2023-01-30 23:59 | disposition home health service (06) | LOC: WOU 13:16 | PROVIDERS: ATTEND Specialist | DX: E11.621 Type 2 diabetes mellitus with foot ulcer (principal); L97.415 Non-pressure chronic ulcer of right heel and midfoot with muscle involvement without evidence of necrosis; L97.522 Non-pressure chronic ulcer of other part of left foot with fat layer exposed; E11.69 Type 2 diabetes mellitus with other specified complication; M86.171 Other acute osteomyelitis, right ankle and foot; M46.26 Osteomyelitis of vertebra, lumbar region; Z79.84 Long term (current) use of oral hypoglycemic drugs; Z79.85 Long-term (current) use of injectable non-insulin antidiabetic drugs | CPT/HCPCS: 82962-TC; 97605-TC ==

== ENCOUNTER → 2023-02-06 | Outpatient (CLI) | payer MEDICARE | END | disposition home health service (06) | LOC: WOU 13:00 | PROVIDERS: ATTEND Podiatrist Foot & Ankle Surgery | DX: E11.621 Type 2 diabetes mellitus with foot ulcer (principal); L97.416 Non-pressure chronic ulcer of right heel and midfoot with bone involvement without evidence of necrosis; L97.522 Non-pressure chronic ulcer of other part of left foot with fat layer exposed; E11.69 Type 2 diabetes mellitus with other specified complication; M86.171 Other acute osteomyelitis, right ankle and foot; M46.26 Osteomyelitis of vertebra, lumbar region; Z79.85 Long-term (current) use of injectable non-insulin antidiabetic drugs; Z79.84 Long term (current) use of oral hypoglycemic drugs; I10 Essential (primary) hypertension | CPT/HCPCS: 11042; 11044; 11047; 97605-TC ==

== ENCOUNTER 2023-02-13 14:00 | Outpatient (CLI) | payer MEDICARE | END 2023-02-13 23:59 | disposition home health service (06) | LOC: WOU 14:00 | PROVIDERS: ATTEND Podiatrist Foot & Ankle Surgery | DX: E11.621 Type 2 diabetes mellitus with foot ulcer (principal); L97.413 Non-pressure chronic ulcer of right heel and midfoot with necrosis of muscle; L97.523 Non-pressure chronic ulcer of other part of left foot with necrosis of muscle; E11.69 Type 2 diabetes mellitus with other specified complication; M86.671 Other chronic osteomyelitis, right ankle and foot; M46.26 Osteomyelitis of vertebra, lumbar region; Z79.85 Long-term (current) use of injectable non-insulin antidiabetic drugs; Z79.84 Long term (current) use of oral hypoglycemic drugs | CPT/HCPCS: 11044; 97605; 87070; 87075; 11047; A6253 ==

== ENCOUNTER 2023-02-20 13:35 | Outpatient (CLI) | payer MEDICARE | END 2023-02-20 23:59 | disposition home health service (06) | LOC: WOU 13:35 | PROVIDERS: ATTEND Podiatrist Foot & Ankle Surgery | DX: E11.621 Type 2 diabetes mellitus with foot ulcer (principal); L97.415 Non-pressure chronic ulcer of right heel and midfoot with muscle involvement without evidence of necrosis; L97.522 Non-pressure chronic ulcer of other part of left foot with fat layer exposed; E11.69 Type 2 diabetes mellitus with other specified complication; M86.671 Other chronic osteomyelitis, right ankle and foot; M46.26 Osteomyelitis of vertebra, lumbar region; Z79.84 Long term (current) use of oral hypoglycemic drugs; Z79.85 Long-term (current) use of injectable non-insulin antidiabetic drugs | CPT/HCPCS: 11043; 97605; 11046; A6253 ==

== ENCOUNTER 2023-02-27 13:36 | Outpatient (CLI) | payer MEDICARE | END 2023-02-27 23:59 | disposition home health service (06) | LOC: WOU 13:36 | PROVIDERS: ATTEND Podiatrist Foot & Ankle Surgery | DX: E11.621 Type 2 diabetes mellitus with foot ulcer (principal); L97.415 Non-pressure chronic ulcer of right heel and midfoot with muscle involvement without evidence of necrosis; L97.528 Non-pressure chronic ulcer of other part of left foot with other specified severity; E11.69 Type 2 diabetes mellitus with other specified complication; M86.671 Other chronic osteomyelitis, right ankle and foot; M46.26 Osteomyelitis of vertebra, lumbar region; Z79.85 Long-term (current) use of injectable non-insulin antidiabetic drugs; Z79.84 Long term (current) use of oral hypoglycemic drugs; I10 Essential (primary) hypertension | CPT/HCPCS: 11043; 11046; 73620; A6197; G0463 ==

== ENCOUNTER 2023-03-01 10:56 | Outpatient (CLI) | payer MEDICARE | END 2023-03-01 23:59 | disposition home or self-care (01) | LOC: CT 10:56 | PROVIDERS: ATTEND Podiatrist Foot & Ankle Surgery | DX: M24.674 Ankylosis, right foot (principal); M85.88 Other specified disorders of bone density and structure, other site; L97.519 Non-pressure chronic ulcer of other part of right foot with unspecified severity; Z47.81 Encounter for orthopedic aftercare following surgical amputation | CPT/HCPCS: 73700-TC ==

== ENCOUNTER 2023-03-06 13:34 | Outpatient (CLI) | payer MEDICARE | END 2023-03-06 23:59 | disposition home health service (06) | LOC: WOU 13:34 | PROVIDERS: ATTEND Podiatrist Foot & Ankle Surgery | DX: E11.621 Type 2 diabetes mellitus with foot ulcer (principal); L97.416 Non-pressure chronic ulcer of right heel and midfoot with bone involvement without evidence of necrosis; E11.69 Type 2 diabetes mellitus with other specified complication; M86.671 Other chronic osteomyelitis, right ankle and foot; M46.26 Osteomyelitis of vertebra, lumbar region; Z79.85 Long-term (current) use of injectable non-insulin antidiabetic drugs; Z79.84 Long term (current) use of oral hypoglycemic drugs | CPT/HCPCS: 11044; 97605; 11047; A6253 ×2; A6197 ==

== ENCOUNTER 2023-03-13 15:03 | Outpatient (CLI) | payer MEDICARE | END 2023-03-13 23:59 | disposition home health service (06) | LOC: WOU 15:03 | PROVIDERS: ATTEND Specialist | DX: E11.621 Type 2 diabetes mellitus with foot ulcer (principal); L97.522 Non-pressure chronic ulcer of other part of left foot with fat layer exposed; L97.415 Non-pressure chronic ulcer of right heel and midfoot with muscle involvement without evidence of necrosis; E11.69 Type 2 diabetes mellitus with other specified complication; M86.671 Other chronic osteomyelitis, right ankle and foot; M46.26 Osteomyelitis of vertebra, lumbar region; Z79.84 Long term (current) use of oral hypoglycemic drugs; Z79.85 Long-term (current) use of injectable non-insulin antidiabetic drugs | CPT/HCPCS: 97605; A6253; A6209 ==

== ENCOUNTER 2023-03-20 13:45 | Outpatient (CLI) | payer MEDICARE | END 2023-03-20 23:59 | disposition home health service (06) | LOC: WOU 13:45 | PROVIDERS: ATTEND Specialist | DX: E11.621 Type 2 diabetes mellitus with foot ulcer (principal); L97.415 Non-pressure chronic ulcer of right heel and midfoot with muscle involvement without evidence of necrosis; L97.522 Non-pressure chronic ulcer of other part of left foot with fat layer exposed; E11.40 Type 2 diabetes mellitus with diabetic neuropathy, unspecified; E11.69 Type 2 diabetes mellitus with other specified complication; M86.671 Other chronic osteomyelitis, right ankle and foot; M46.26 Osteomyelitis of vertebra, lumbar region; I10 Essential (primary) hypertension; Z79.85 Long-term (current) use of injectable non-insulin antidiabetic drugs; Z79.84 Long term (current) use of oral hypoglycemic drugs | CPT/HCPCS: 11044; 97605; 87070; 87075; A6209 ==

== ENCOUNTER 2023-03-27 13:34 | Outpatient (CLI) | payer MEDICARE | END 2023-03-27 23:59 | disposition home or self-care (01) | LOC: WOU 13:34 | PROVIDERS: ATTEND Podiatrist Foot & Ankle Surgery | DX: E11.621 Type 2 diabetes mellitus with foot ulcer (principal); L97.415 Non-pressure chronic ulcer of right heel and midfoot with muscle involvement without evidence of necrosis; L97.522 Non-pressure chronic ulcer of other part of left foot with fat layer exposed; E11.69 Type 2 diabetes mellitus with other specified complication; M46.26 Osteomyelitis of vertebra, lumbar region; M86.671 Other chronic osteomyelitis, right ankle and foot; Z79.85 Long-term (current) use of injectable non-insulin antidiabetic drugs; Z79.84 Long term (current) use of oral hypoglycemic drugs | CPT/HCPCS: 97605; A6209 ==